=== PATIENT | female | born 1950 | race Caucasian/White ===

== ENCOUNTER → 2017-11-13 14:49 | Outpatient (CLI) | payer MEDICARE, SELFPAY ==
--- NOTE | 2017-11-13 14:52 | BI_ITS ---
MAMMOGRAPHY - BILATERAL SCREENING 3-D TOÑO SYNTHESIS REASON FOR EXAM: Female, 66 years old. Bilateral Screening 3-D tomosynthesis PERTINENT HISTORY: No significant family history. TECHNIQUE: 2-D mammograms and 3-D Toño synthesis of the breast (s) were performed. CAD was performed. COMPARISON: June 02, 2015. FINDINGS: The breast composition is composed of scattered fibroglandular density. Scattered benign calcifications are seen. No dense spiculated masses or suspicious microcalcifications are identified. No architectural distortion is identified. There is no skin thickening or retraction. There has been no significant change since the prior study. BI/SCREENING MAMM (CAD), BILAT IMPRESSION: No mammographic signs of malignancy. Routine yearly mammograms recommended. ASSESSMENT CATEGORY: BIRADS Category 2: Benign. A letter regarding these results will be sent to the patient by the facility within 30 days. FOLLOW UP RECOMMENDATION: Yearly follow up mammogram recommended. (A) Approximately 10% of breast cancers are not detected by mammography. A normal mammogram should not delay biopsy of a clinically suspicious abnormality. Electronically Signed: Orville Marin MD at 16:04 EDT , Service support ,
== END ==
PROVIDERS: Family Provider Family Medicine; PCP Family Medicine; Visit Provider Family Medicine
DX: Z12.31 Encounter for screening mammogram for malignant neoplasm of breast (principal)
CPT/HCPCS: 77063; 77067

== ENCOUNTER → 2018-03-16 06:06 | Outpatient (CLI) | payer MEDICARE, SELFPAY ==
[2018-03-16 06:11] LABS: Bacteria 0 SEEN /hpf (None Seen); Mucous, Urine 0 SEEN /hpf (<or=2+); Red Blood Cells-Urine 0 SEEN /hpf (0-5)
[2018-03-16 07:32] LABS: Color, Urine Yellow (Yellow); Glucose, Dipstick Normal (Normal); Ketone-Dipstick Negative (Negative); Leukocyte Esterase-Dipstick 25 /ul (Negative); Nitrite-Dipstick Positive (Negative); Occult Blood-Urine Negative /ul (Negative); Protein-Dipstick Negative (Negative); Urine Clarity Sl. Cloudy (Clear); Urine Urobilinogen 1 mg/dl (Normal)
[2018-03-16 07:33] LABS: Microalbumin,Random Urine 5.9 mg/L (NO RANGE EST.); Microalbumin:Creatinine Ratio 6.4 mg/g CRE (<30 mg/g CRE)
[2018-03-16 07:34] LABS: Urine Bilirubin Dipstick 1 mg/dL (Negative)
[2018-03-16 07:41] LABS: AST(SGOT) 32 U/L (15-37); Alanine Aminotransfer ALT/SGPT 37 U/L (13-56); Albumin, Serum 3.8 g/dL (3.2-5.0); Alkaline Phosphatase 79 U/L (45-117); Anion Gap 11 (5-15); BUN 25 mg/dL (7-18); BUN/Creat Ratio 22.7 RATIO (10-20); Calcium,Total 9.1 mg/dL (8.5-10.1); Chloride 107 mmol/L (98-107); Cholesterol 188 mg/dL (200); EST Glomerular Filtration Rate 52 mL/min (>60); Est Glom Filt Rate - Afr Amer 63 mL/min (>60); Globulin 3.9 g/dL (2.2-4.2); Glucose 75 mg/dL (74-106); High Density Lipoprotein 88 mg/dL; Potassium 3.9 mmol/L (3.5-5.1); Protein, Total 7.7 g/dL (6.4-8.2); Sodium Level 143 mmol/L (136-145); Thyroid Stim Hormone (TSH) 1.45 uIU/mL (0.358-3.74); Triglycerides 72 mg/dL; Very Low Density Lipoprotein 14 mg/dL (5-40)
[2018-03-16 07:52] LABS: Squamous Epithelial Cells - UA 0-5 SEEN /hpf (5-10); White Blood Cells 0-5 SEEN /hpf (0-5)
== END ==
PROVIDERS: Family Provider Family Medicine; PCP Family Medicine; Visit Provider Family Medicine
DX: E78.00 Pure hypercholesterolemia, unspecified (principal); R30.0 Dysuria; E03.9 Hypothyroidism, unspecified
CPT/HCPCS: 36415; 80053; 80061; 81001; 82043; 82570; 84443; 87086; 87088

== ENCOUNTER → 2018-04-19 15:14 | Outpatient (CLI) | payer MEDICARE, SELFPAY ==
--- NOTE | 2018-04-19 15:18 | US_ITS ---
STUDY: SUPERFICIAL ULTRASOUND - RIGHT ROSARIO. REASON FOR EXAM: Female, 67 years old. Palpable lump in right rosario. TECHNIQUE: A superficial ultrasound was performed with real-time and static gardner-scale imaging. COMPARISON: None. FINDINGS: 1.0 x 0.6 x 0.3 cm isoechoic focus with hypoechoic border in the palpable lump in the superficial subcutaneous space of the right lateral rosario. Etiology is unknown. US/Ext Non Vasc Limited/Soft Tiss IMPRESSION: 1.0 x 0.6 x 0.3 cm isoechoic focus with hypoechoic rim in the palpable lump area of the right lateral rosario. Etiology is unknown. MRI will be more helpful if desired. Electronically Signed: Brandon Chand MD at 10:24 EDT , Service support ,
== END ==
PROVIDERS: Family Provider Family Medicine; PCP Family Medicine; Referring Provider Family Medicine; Visit Provider Family Medicine
DX: R22.9 Localized swelling, mass and lump, unspecified (principal)
CPT/HCPCS: 76882

== ENCOUNTER → 2018-09-14 06:22 | Outpatient (CLI) | payer MEDICARE, SELFPAY ==
[2018-09-14 07:57] LABS: Albumin, Serum 3.9 g/dL (3.2-5.0); BUN 25 mg/dL (7-18); BUN/Creat Ratio 23.4 RATIO (10-20); Calcium,Total 9.4 mg/dL (8.5-10.1); Chloride 108 mmol/L (98-107); Creatinine, Serum 1.07 mg/dL (0.55-1.02); EST Glomerular Filtration Rate 54 mL/min (>60); Est Glom Filt Rate - Afr Amer 65 mL/min (>60); Glucose 93 mg/dL (74-106); Phosphorus 3.8 mg/dL (2.5-4.9); Potassium 4.2 mmol/L (3.5-5.1); Sodium Level 143 mmol/L (136-145)
== END ==
PROVIDERS: Family Provider Family Medicine; PCP Family Medicine; Referring Provider Family Medicine; Visit Provider Family Medicine
DX: N18.2 Chronic kidney disease, stage 2 (mild) (principal)
CPT/HCPCS: 36415; 80069

== ENCOUNTER → 2018-09-19 16:17 | Outpatient (CLI) | payer MEDICARE, SELFPAY ==
[2018-09-19 16:22] LABS: Bacteria 0 SEEN /hpf (None Seen); Mucous, Urine 0 SEEN /hpf (<or=2+); Red Blood Cells-Urine 0 SEEN /hpf (0-5); Squamous Epithelial Cells - UA 0 SEEN /hpf (5-10); White Blood Cells 0 SEEN /hpf (0-5)
[2018-09-19 18:23] LABS: Color, Urine Yellow (Yellow); Glucose, Dipstick Normal (Normal); Ketone-Dipstick 15 mg/dl (Negative); Leukocyte Esterase-Dipstick Negative /ul (Negative); Nitrite-Dipstick Negative (Negative); Occult Blood-Urine Negative /ul (Negative); Protein-Dipstick Negative (Negative); Urine Bilirubin Dipstick Negative (Negative); Urine Clarity Clear (Clear); Urine Urobilinogen Normal (Normal)
[2018-09-19 18:44] LABS: Microalbumin,Random Urine 7.1 mg/L (NO RANGE EST.); Microalbumin:Creatinine Ratio 8.5 mg/g CRE (<30 mg/g CRE)
[2018-09-19 18:55] LABS: ALB/GLOB Ratio 1.1 RATIO (0.9-2.4); AST(SGOT) 29 U/L (15-37); Alanine Aminotransfer ALT/SGPT 38 U/L (13-56); Albumin, Serum 4.1 g/dL (3.2-5.0); Alkaline Phosphatase 90 U/L (45-117); Anion Gap 12 (5-15); BUN 23 mg/dL (7-18); CRP < 2.90 mg/L (0.0-3.0); Calcium,Total 9.6 mg/dL (8.5-10.1); Chloride 105 mmol/L (98-107); EST Glomerular Filtration Rate 58 mL/min (>60); Est Glom Filt Rate - Afr Amer 71 mL/min (>60); Globulin 3.9 g/dL (2.2-4.2); Glucose 86 mg/dL (74-106); Potassium 3.6 mmol/L (3.5-5.1); Sodium Level 141 mmol/L (136-145); T4 Free Direct 1.51 ng/dL (0.76-1.46); Thyroid Stim Hormone (TSH) 0.53 uIU/mL (0.358-3.74)
== END ==
PROVIDERS: Family Provider Family Medicine; PCP Family Medicine; Referring Provider Family Medicine; Visit Provider Family Medicine
DX: I12.9 Hypertensive chronic kidney disease with stage 1 through stage 4 chronic kidney disease, or unspecified chronic kidney disease (principal); N18.2 Chronic kidney disease, stage 2 (mild); E03.9 Hypothyroidism, unspecified; R00.0 Tachycardia, unspecified
CPT/HCPCS: 36415; 80053; 81001; 82043; 82570; 84439; 84443; 86140; 87086; 87088

== ENCOUNTER → 2018-10-22 11:55 | Outpatient (CLI) | payer MEDICARE, SELFPAY ==
[2018-10-22 14:16] LABS: Free T3 2.5 pg/mL (2.18-3.98); T4 Free Direct 0.98 ng/dL (0.76-1.46); Thyroid Stim Hormone (TSH) 1.58 uIU/mL (0.358-3.74)
== END ==
PROVIDERS: Family Provider Family Medicine; PCP Family Medicine; Visit Provider Family Medicine
DX: E03.9 Hypothyroidism, unspecified (principal)
CPT/HCPCS: 36415; 84439; 84443; 84481

== ENCOUNTER → 2019-01-17 | Outpatient (CLI) | payer MEDICARE, SELFPAY ==
[2019-01-17 08:49] VITALS: BMI 20.1
[2019-01-17 15:53] LABS: Bacteria 0 SEEN /hpf (None Seen); Mucous, Urine 0 SEEN /hpf (<or=2+); Red Blood Cells-Urine 0 SEEN /hpf (0-5); White Blood Cells 0 SEEN /hpf (0-5)
[2019-01-17 17:09] LABS: Color, Urine Yellow (Yellow)
[2019-01-17 17:10] LABS: Glucose, Dipstick Normal (Normal); Ketone-Dipstick Negative (Negative); Leukocyte Esterase-Dipstick Negative /ul (Negative); Occult Blood-Urine Negative /ul (Negative); Protein-Dipstick Negative (Negative); Urine Bilirubin Dipstick Negative (Negative); Urine Clarity Sl Cldy (Clear); Urine Urobilinogen 1 mg/dl (Normal)
[2019-01-17 17:12] LABS: Nitrite-Dipstick Negative (Negative); Squamous Epithelial Cells - UA 0-5 SEEN /hpf (5-10)
[2019-01-17 17:13] LABS: Amorphous Sediment 1+ URATE
== END | disposition home or self-care (01) ==
LOC: LABSPEC 14:49
PROVIDERS: Family Provider Family Medicine; PCP Family Medicine; Referring Provider Physician Assistant; Visit Provider Physician Assistant
DX: R30.0 Dysuria (principal)
CPT/HCPCS: 81001; 87086

== ENCOUNTER → 2019-09-27 09:02 | Outpatient (CLI) | payer MEDICARE, SELFPAY ==
[2019-01-17 08:49] VITALS: BMI 20.1
[2019-09-27 11:42] LABS: ALB/GLOB Ratio 0.9 RATIO (0.9-2.4); AST(SGOT) 28 U/L (15-37); Alanine Aminotransfer ALT/SGPT 48 U/L (13-56); Albumin, Serum 3.8 g/dL (3.2-5.0); Alkaline Phosphatase 91 U/L (45-117); Anion Gap 6 (5-15); BUN 20 mg/dL (7-18); BUN/Creat Ratio 22.1 RATIO (10-20); Calcium,Total 9.8 mg/dL (8.5-10.1); Chloride 106 mmol/L (98-107); Cholesterol 239 mg/dL (200); Creatinine, Serum 0.91 mg/dL (0.55-1.02); EST Glomerular Filtration Rate 65 mL/min (>60); Est Glom Filt Rate - Afr Amer 79 mL/min (>60); Globulin 4.3 g/dL (2.2-4.2); Glucose 93 mg/dL (74-106); High Density Lipoprotein 87 mg/dL; Potassium 3.9 mmol/L (3.5-5.1); Protein, Total 8.1 g/dL (6.4-8.2); Sodium Level 138 mmol/L (136-145); T4 Free Direct 1.04 ng/dL (0.76-1.46); Thyroid Stim Hormone (TSH) 2.97 uIU/mL (0.358-3.74); Triglycerides 81 mg/dL; Very Low Density Lipoprotein 16 mg/dL (5-40)
== END ==
PROVIDERS: Nurse Practitioner Family; PCP Family Medicine; Referring Provider Family Medicine; Visit Provider Family Medicine
DX: E78.00 Pure hypercholesterolemia, unspecified (principal); E55.9 Vitamin D deficiency, unspecified; E03.9 Hypothyroidism, unspecified
CPT/HCPCS: 36415; 80053; 80061; 82306; 84439; 84443

== ENCOUNTER → 2020-02-07 06:09 | Outpatient (CLI) | payer MEDICARE, SELFPAY ==
[2019-01-17 08:49] VITALS: BMI 20.1
[2020-02-07 08:06] LABS: Anion Gap 5 (5-15); BUN 23 mg/dL (7-18); BUN/Creat Ratio 21.7 RATIO (10-20); Calcium,Total 8.9 mg/dL (8.5-10.1); Chloride 109 mmol/L (98-107); Creatinine, Serum 1.06 mg/dL (0.55-1.02); EST Glomerular Filtration Rate 54 mL/min (>60); Est Glom Filt Rate - Afr Amer 66 mL/min (>60); Glucose 83 mg/dL (74-106); Potassium 3.9 mmol/L (3.5-5.1); Sodium Level 139 mmol/L (136-145); T4 Free Direct 1.09 ng/dL (0.76-1.46); Thyroid Stim Hormone (TSH) 2.71 uIU/mL (0.358-3.74)
== END ==
PROVIDERS: PCP Family Medicine; Referring Provider Family Medicine; Visit Provider Family Medicine
DX: I10 Essential (primary) hypertension (principal); E03.9 Hypothyroidism, unspecified
CPT/HCPCS: 36415; 80048; 84439; 84443

== ENCOUNTER → 2020-08-06 13:27 | Outpatient (CLI) | payer MEDICARE, SELFPAY ==
[2019-01-17 08:49] VITALS: BMI 20.1
--- NOTE | 2020-08-06 13:32 | BI_ITS ---
MAMMOGRAPHY - BILATERAL SCREENING REASON FOR EXAM: Female, 69 years old. Routine annual screening examination. PERTINENT HISTORY: Non-contributory. Remote left breast biopsy. TECHNIQUE: Digital bilateral breast toño (3D mammographic acquisition) in the CC and MLO projections. 2-D mediolateral oblique (MLO) and craniocaudad (CC) views of both breasts were obtained. CAD: Full Field Digital Mammography with Computer Added Detection was performed. COMPARISON: Comparison is made with prior study dated 11/13/2017 and 06/02/2015. FINDINGS: Breast Composition: There are scattered areas of fibroglandular density. There are no dominant masses or suspicious calcifications. No other significant abnormalities are identified. There has been no significant change since the prior study. BI/SCRN MAMM (CAD)W/TOÑO BILAT IMPRESSION: Stable bilateral screening mammogram. Yearly follow-up mammogram recommended. (A) ASSESSMENT CATEGORY: BIRADS Category 1: Negative. A letter regarding these results will be sent to the patient by the facility within 30 days. Approximately 10% of breast cancers are not detected by mammography. A normal mammogram should not delay biopsy of a clinically suspicious abnormality. [id number] Electronically Signed: Sloan Britton, at 14:32 EST , Service support ,
--- NOTE | 2020-08-06 13:34 | BD_ITS ---
STUDY: DUAL ENERGY X-RAY ABSORPTIOMETRY / DXA REASON FOR EXAM: Female, 69 years old. 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 COMPARISON: Comparison is made with prior study dated 01/07/2014. FINDINGS: Lumbar Spine (L1-L4): g/cm2 (1.070) / T-score (-0.9) / Z-score (0.8) Findings are suggestive of normal bone density with a low fracture risk. Left Femur Total: g/cm2 (0.908) / T-score (-0.8) / Z-score (0.8) Left Femoral Neck: g/cm2 (0.833) / T-score (-1.5) / Z-score (0.3) Right Femur Total: g/cm2 (0.881) / T-score (-1.0) / Z-score (0.5) Right Femoral Neck: g/cm2 (0.820) / T-score (-1.6) / Z-score (0.2) The T-Scores on the most recent prior examination were: Lumbar Spine (L1-L4): There has been worsening of bone density since the previous examination. Left Femur Total: which represents a worsening of 3.9%. Right Femur Total: which represents a worsening of 8.2%. BD/Dexa Bone Density Study IMPRESSION: The patient is considered osteopenic as outlined below according to World [employer] Organization (WHO) criteria with a moderate fracture risk. There has been worsening of bone density since the previous examination. Reference Information: The T-score is the number of standard deviations above or below the standard which is normal for young adults at their peak bone mineral density. The World Health Organization (WHO) interprets the T-scores as follows: Above -1 Normal bone density Between -1 and -2.5 Osteopenia Equal to / or below -2.5 Osteoporosis As a practical clinical guideline, osteopenia may be graded as follows: Mild -1 through -1.5 Moderate -1.6 through -2.0 Severe -2.1 through -2.4 The Z-score is the number of standard deviations above or below age-matched controls. A Z-score of less than -1.5 would be considered abnormal. References: 1. NIH Osteoporosis and Related Bone Diseases www osteo.org 2. International Society for Clinical Densitometry www iscd.org 3. National Osteoporosis Foundation www nof.org Electronically Signed: Sloan Britton, at 15:21 EST , Service support ,
== END ==
PROVIDERS: PCP Family Medicine; Referring Provider Family Medicine; Visit Provider Family Medicine
DX: Z12.31 Encounter for screening mammogram for malignant neoplasm of breast (principal); E28.319 Asymptomatic premature menopause
CPT/HCPCS: 77063; 77067; 77080

== ENCOUNTER → 2020-12-28 06:07 | Outpatient (CLI) | payer MEDICARE, SELFPAY ==
[2019-01-17 08:49] VITALS: BMI 20.1
[2020-12-28 07:22] LABS: Absolute Lymphocyte Count 2.07 X10^3/uL (0.83-4.51); Absolute Neutrophil Count 3.1 X10^3/uL (2.0-7.7); Basophil# 0.06 X10^3/uL; Eosinophil# 0.17 X10^3/uL; Eosinophils% 2.8 % (0-5); Hematocrit 44.2 % (37-47); Hemoglobin 14.7 g/dL (12.0-15.0); Lymphocyte # 2.07 X10^3/ul (0.83-4.51); Lymphocyte % 33.6 % (19-41); Mean Corp Hgb Conc 33.3 g/dL (32-36); Mean Corpuscular Hgb 30.4 pg (27.0-32.0); Mean Corpuscular Volume 91.3 fL (81-99); Mean Platelet Vol. 9.2 fl (6.2-12.0); Monocyte# 0.79 X10^3/uL; Monocyte% 12.8 % (0-10); NRBC Flagged by Analyzer 0 % (0-5); Neutrophil # 3.06 X10^3/uL (2.7-7.7); Neutrophil % 49.6 % (47-70); Platelet Count 208 K/mm3 (150-450); RBC Distribution Width CV 11.8 % (11.6-14.6); RBC Distribution Width SD 39.5 fl (35.1-43.9); Red Blood Count 4.84 M/mm3 (4.2-5.4); White Blood Count 6.2 K/mm3 (4.4-11.0)
[2020-12-28 07:40] LABS: Microalbumin,Random Urine 5.1 mg/L (NO RANGE EST.); Microalbumin:Creatinine Ratio 3.3 mg/g CRE (<30 mg/g CRE)
[2020-12-28 07:54] LABS: ALB/GLOB Ratio 0.8 RATIO (0.9-2.4); AST(SGOT) 24 U/L (15-37); Alanine Aminotransfer ALT/SGPT 28 U/L (13-56); Albumin, Serum 3.4 g/dL (3.2-5.0); Alkaline Phosphatase 92 U/L (45-117); Anion Gap 9 (5-15); BUN 22 mg/dL (7-18); BUN/Creat Ratio 21.8 RATIO (10-20); Calcium,Total 9.3 mg/dL (8.5-10.1); Chloride 105 mmol/L (98-107); Creatinine, Serum 1.01 mg/dL (0.55-1.02); EST Glomerular Filtration Rate 57 mL/min (>60); Est Glom Filt Rate - Afr Amer 69 mL/min (>60); Glucose 88 mg/dL (74-106); Protein, Total 7.4 g/dL (6.4-8.2); Sodium Level 141 mmol/L (136-145); Thyroid Stim Hormone (TSH) 3.01 uIU/mL (0.358-3.74)
[2020-12-28 07:58] LABS: Vitamin D,25 Hydroxy 48.2 ng/mL
== END ==
PROVIDERS: PCP Family Medicine; Referring Provider Family Medicine; Visit Provider Family Medicine
DX: N18.2 Chronic kidney disease, stage 2 (mild) (principal); E03.9 Hypothyroidism, unspecified; E55.9 Vitamin D deficiency, unspecified
CPT/HCPCS: 36415; 80053; 82043; 82306; 82570; 84443; 85025

== ENCOUNTER 2022-05-04 07:04 | Emergency (ER) | payer MEDICARE, SELFPAY ==
[2022-05-04 07:05] VITALS: BP 164/86; PULSE 96; RESP 19; TEMP 36.3; O2SAT 98; BMI 22.7
[2022-05-04 07:07] VITALS: BP 164/86; PULSE 96; RESP 19; TEMP 36.3; O2SAT 98
--- NOTE | 2022-05-04 07:21 | EDS_ITS ---
HPI HPI - GI History of Present Illness Chief Complaint: Abd Pain Informant: patient Abdominal Pain/Flank Pain Onset: Days (3) Context: Gradual Onset Timing: Intermittent Quality: Cramping Location: Epigastric and LLQ Worsened by: Nothing Relieved by: Nothing Nausea/Vomiting/Emesis GI Symptom: Positive for Nausea; Negative for Vomiting Diarrhea/Melena/Hematochezia GI Symptom: Positive for Diarrhea; Negative for Melena or Hematochezia Stool Quality: Positive for Loose Episodes: 1 Associated Symptoms Associated Symptoms: Negative for Dysuria, Frequency or Hematuria Narrative Narrative: Patient presents with a aminal pain that has been intermittent over the last 3 days. Patient states she has pain over the epigastric and left lower quadrant. Patient describes it as cramping. Patient states it feels similar to prior episodes of diverticulitis. Patient states she has Cipro and Flagyl at home and usually starts this whenever she feels her diverticulitis started to flareup. Patient states she started this yesterday but it has not improved. Patient admits to nausea but denies any vomiting. Patient states she had 1 episode of diarrhea today. Patient denies any melena or hematochezia. Patient denies any urinary complaints. [facility] Medical History (Updated 05/04/22 @ 10:[address] Cr Franz, DO) Arthritis Diverticulitis Hay fever Hemorrhoids Hypertension Home Medications antiarthritic combination no.2 900 mg tablet (glucosamine-chondroitin) mg PO 01/17/19 [History Last Taken Unknown] atorvastatin 10 mg tablet PO #90 tabs 01/17/19 [History Last Taken Unknown] calcium carbonate 600 mg calcium (1,500 mg) tablet 600 mg PO DAILY 01/17/19 [History Last Taken Unknown] cetirizine 10 mg capsule (Zyrtec) PO 01/17/19 [History Last Taken Unknown] dicyclomine 10 mg capsule PO #180 caps 01/17/19 [History Last Taken Unknown] famotidine 40 mg tablet PO #90 tabs 01/17/19 [History Last Taken Unknown] fluconazole 200 mg tablet 200 mg PO DAILY #1 TAB 01/17/19 [Rx Last Taken Unknown] levothyroxine 75 mcg tablet PO #90 tabs 01/17/19 [History Last Taken Unknown] lisinopril 10 mg tablet PO #90 tabs 01/17/19 [History Last Taken Unknown] multivitamin,[id number] (Complete Multivitamin tablet) 1 tab PO DAILY 01/17/19 [History Last Taken Unknown] nifedipine 30 mg tablet,extended release PO #90 tabs 01/17/19 [History Last Taken Unknown] omega-3 fatty acids 1,000 mg capsule 1,000 mg PO DAILY 01/17/19 [History Last Taken Unknown] ciprofloxacin HCl 500 mg tablet 500 mg PO BID #20 TABLETS 05/04/22 [Rx Last Taken Unknown] metronidazole 500 mg tablet 500 mg PO Q6H #40 tabs 05/04/22 [Rx Last Taken Unknown] Allergy/AdvReac Type Severity Reaction Status Date / Time Penicillins Allergy Mild HIVES Verified 01/17/19 08:51 Surgical History History of knee surgery History of tonsillectomy Social History Smoking Status: Never smoker alcohol intake: current ROS ROS ED Constitutional Constitutional ED: Denies chills or fever(s) Eyes Eyes: Denies blurry vision or change in vision ENT ENT ED: Denies rhinorrhea or sore throat Cardiovascular Cardiovascular: Denies chest pain or palpitations Respiratory/Chest Respiratory/Chest: Denies cough or dyspnea Gastrointestinal Gastrointestinal: Reports abdominal pain and nausea; Denies vomiting Genitourinary Genitourinary ED: Denies dysuria or hematuria Musculoskeletal Musculoskeletal: Reports back pain; Denies neck pain Integumentary Denies abscess or rash Neurologic Neurologic: Denies headache(s) or weakness Allergic/Immunologic Allergic/Immunologic ED: Denies mouth swelling or urticaria EXAM Physical Exam Const Vital Signs: 05/04/22 07:05 05/04/22 07:07 05/04/22 10:00 Temperature 97.3 F L 97.3 F L 97.6 F L Temperature Source Oral Oral Oral Pulse Rate 96 96 83 Respiratory Rate 19 H 19 H 16 Blood Pressure 164/86 H 164/86 H 165/87 H Blood Pressure Mean 112 112 113 Pulse Ox 98 98 99 Oxygen Delivery Method Room Air Room Air Room Air 05/04/22 09:00 Temperature Temperature Source Pulse Rate 83 Respiratory Rate 16 Blood Pressure 162/81 H Blood Pressure Mean 108 Pulse Ox 98 Oxygen Delivery Method Room Air Positive well nourished and well developed General Appearance ED: well developed HEENT Reports moist mucous membranes Neck supple and no JVD Resp normal respiratory effort and clear to auscultation bilaterally Cardio regular rate, regular rhythm and no murmurs GI normal to inspection, nondistended, normoactive bowel sounds Palpation: soft and tender epigastric and LLQ; Negative for guarding or rebound tenderness present Extremity normal to inspection General Extremety ED: Negative for edema or tenderness General Extremity: Negative for edema Neuro oriented x3, CN's II-XII intact bilaterally and no sensory deficits noted Sensorium / Orientation: alert Motor Exam: strength 5/5 throughout Psych mental status grossly normal Skin no rashes or lesions noted MDM MDM MDM Narrative Medical decision making narrative: Patient was given IV fluids. CBC shows a mild leukocytosis of 14.4. Comprehensive metabolic profile was essentially within normal limits. Lipase was normal. Urinalysis does not show any evidence of urinary tract infection. CT scan of the abdomen pelvis was obtained. There is evidence of diverticulitis. There is no perforation or abscess. There is no other acute abnormality noted. This was interpreted by the radiologist and reviewed by myself. Patient was advised of her findings. Patient states she is almost out of her antibiotics. Patient was given prescriptions for Cipro and Flagyl. Patient was instructed to follow-up with her primary care physician in 5 to 7 days. Patient understood and was agreeable with the plan. All questions were answered. Lab Data Attestation: I reviewed the patient's lab results. Labs: Laboratory Results - last 24 hr 05/04/22 05/04/22 05/04/22 07:06 07:06 07:40 WBC 14.4 H RBC 5.04 Hgb 15.3 H Hct 46.0 MCV 91.3 MCH 30.4 MCHC 33.3 RDW Std Deviation 39.2 RDW Coeff of Nabeel 11.8 Plt Count 200 MPV 9.0 Immature Gran % (Auto) 0.400 Neut % (Auto) 75.3 H Lymph % (Auto) 13.0 L Waller % (Auto) 10.9 H Eos % (Auto) 0.1 Baso % (Auto) 0.3 Absolute Neuts (auto) 10.8 H Absolute Lymphs (auto) 1.87 Nucleated RBC % 0 Differential Comment SCANNED Diff Path Review May foll Sodium 135 L Potassium 4.2 Chloride 104 Carbon Dioxide 25.0 Anion Gap 6 BUN 16 Creatinine 0.99 Estim Creat Clear Calc 36.35 Est GFR (MDRD) Af Amer 70 Est GFR (MDRD) Non-Af 58 L BUN/Creatinine Ratio 16.1 Glucose 130 H Calcium 9.2 Total Bilirubin 0.90 AST 24 ALT 32 Alkaline Phosphatase 81 Total Protein 7.5 Albumin 3.4 Globulin 4.1 Albumin/Globulin Ratio 0.8 L Lipase 204 Urine Color Yellow Urine Clarity Sl. Cloudy Urine pH 6.0 Ur Specific [place] 1.010 Urine Protein Negative Urine Glucose (UA) Normal Urine Ketones 5 H Urine Occult Blood 10 H Urine Nitrite Negative Urine Bilirubin Negative Urine Urobilinogen Normal Ur Leukocyte Esterase 25 H Urine RBC 0-5 SEEN Urine WBC 0-5 SEEN Ur Squamous Epith Cells 0 SEEN Urine Bacteria 0 SEEN Urine Mucus 0 SEEN Radiography Diagnostic Testing: Clinical Impression(s) from Imaging Studies Abdomen/Pelvis CT 05/04/22 07:25 IMPRESSION: Findings in keeping with the noncomplicated acute sigmoid diverticulitis. Stable multiple hepatic cysts. Electronically Signed: Sloan Britton MD at 9:39 EDT , Discharge Plan Triage Chief Complaint: Abd Pain ED Provider: Cr Franz Dx/Rx/DC Orders Clinical Impression: Diverticulitis, Hypertension Instructions: ED Diverticulitis Prescriptions: New metronidazole [metronidazole] 500 mg tablet 500 mg PO Q6H Qty: 40 0RF ciprofloxacin HCl [ciprofloxacin HCl] 500 mg tablet 500 mg PO BID Qty: 20 0RF No Action lisinopril 10 mg tablet PO Qty: 90 levothyroxine 75 mcg tablet PO Qty: 90 atorvastatin 10 mg tablet PO Qty: 90 nifedipine 30 mg tablet extended release PO Qty: 90 famotidine 40 mg tablet PO Qty: 90 dicyclomine 10 mg capsule PO Qty: 180 calcium carbonate 600 mg calcium (1,500 mg) tablet 600 mg PO DAILY glucosamine-chondroitin 900 mg tablet PO Complete Multivitamin tablet 1 tab PO DAILY omega-3 fatty acids 1,000 mg capsule 1,000 mg PO DAILY Zyrtec 10 mg capsule PO fluconazole 200 mg tablet 200 mg PO DAILY Qty: 1 0RF Primary Care Provider: Cr Casillas Referrals: Cr Casillas MD [Primary Care Provider] - 5-7 Days Disposition Disposition: Home, Self Care
--- NOTE | 2022-05-04 07:25 | CT_ITS ---
STUDY: CT ABDOMEN AND PELVIS WITH CONTRAST REASON FOR EXAM: Female, 71 years old. Abdominal pain -- IV PO Contrast. History of diverticulitis. RADIATION DOSAGE (If Supplied By Facility): CTDIvol = ( 14.64 ) mGy, DLP = ( 275.00 ) mGycm TECHNIQUE: Transaxial images were obtained from the dome of the diaphragm to the symphysis pubis with oral contrast. Oral and amp;amp; IV Gastrografin and amp;amp; 100mL Isovue-370 was administered. Sagittal and coronal images were reconstructed. Individualized dose optimization techniques were used for this CT. COMPARISON: Comparison is made with prior study dated 12/20/2016. FINDINGS: The visualized lung bases are unremarkable. Coronary artery calcification. 51.1 cm cyst in the superior lateral aspect of the right lobe of liver. Diffuse fatty infiltration. Stable septated cyst in the lateral inferior aspect of the right lobe of the liver measuring 3.2 cm x 1.7 cm. Scattered subcentimeters cysts are also seen. These are unchanged. Normal gallbladder and extrahepatic biliary system. Normal spleen. Normal pancreas. Normal bilateral adrenal glands. Normal right kidney. Normal left kidney. There is a moderate-sized hiatal hernia. Normal small intestine. There is diverticulosis, with thickening of the colon wall, and pericolonic inflammation changes consistent with acute diverticulitis. The appendix is visualized and appears normal. Normal abdominal aorta. Normal inferior vena cava. Normal retroperitoneum. Normal urinary bladder. There is evidence of bilateral tubal ligation. Normal abdominal wall. Stable grade 2 anterolisthesis of L5 on S1 with spondylolysis of the pars interarticularis of the L5 vertebrae. CT/Abdomen/Pelvis WITH Contrast IMPRESSION: Findings in keeping with the noncomplicated acute sigmoid diverticulitis. Stable multiple hepatic cysts. Electronically Signed: Sloan Britton MD at 9:39 EDT ,
[2022-05-04 07:37] LABS: Absolute Lymphocyte Count 1.87 X10^3/uL (0.83-4.51); Absolute Neutrophil Count 10.8 X10^3/uL (2.0-7.7); Basophil# 0.05 X10^3/uL; Basophil% 0.3 % (0-1); Eosinophil# 0.02 X10^3/uL; Eosinophils% 0.1 % (0-5); Hemoglobin 15.3 g/dL (12.0-15.0); Lymphocyte # 1.87 X10^3/ul (0.83-4.51); Mean Corp Hgb Conc 33.3 g/dL (32-36); Mean Corpuscular Hgb 30.4 pg (27.0-32.0); Mean Corpuscular Volume 91.3 fL (81-99); Monocyte# 1.57 X10^3/uL; Monocyte% 10.9 % (0-10); NRBC Flagged by Analyzer 0 % (0-5); Neutrophil % 75.3 % (47-70); POSITIVE DIFFERENTIAL YES; Platelet Count 200 K/mm3 (150-450); RBC Distribution Width CV 11.8 % (11.6-14.6); RBC Distribution Width SD 39.2 fl (35.1-43.9); Red Blood Count 5.04 M/mm3 (4.2-5.4); White Blood Count 14.4 K/mm3 (4.4-11.0)
[2022-05-04] MEDS: 0.9% Normal Saline 1,000 ML 1000 ML IV (07:37)
[2022-05-04 07:44] LABS: Differential Indicated SCAN CRITERIA MET
[2022-05-04 07:45] LABS: Bacteria 0 SEEN /hpf (None Seen); Mucous, Urine 0 SEEN /hpf (<or=2+); Squamous Epithelial Cells - UA 0 SEEN /hpf (5-10)
[2022-05-04 07:53] LABS: ALB/GLOB Ratio 0.8 RATIO (0.9-2.4); AST(SGOT) 24 U/L (15-37); Alanine Aminotransfer ALT/SGPT 32 U/L (13-56); Albumin, Serum 3.4 g/dL (3.2-5.0); Alkaline Phosphatase 81 U/L (45-117); BUN 16 mg/dL (7-18); BUN/Creat Ratio 16.1 RATIO (10-20); Calcium,Total 9.2 mg/dL (8.5-10.1); Chloride 104 mmol/L (98-107); Creatinine, Serum 0.99 mg/dL (0.55-1.02); EST Glomerular Filtration Rate 58 mL/min (>60); Est Glom Filt Rate - Afr Amer 70 mL/min (>60); Estimated Creatinine Clearance 36.35 ml/min; Globulin 4.1 g/dL (2.2-4.2); Glucose 130 mg/dL (74-106); Lipase 204 U/L (73-393); Potassium 4.2 mmol/L (3.5-5.1); Protein, Total 7.5 g/dL (6.4-8.2); Sodium Level 135 mmol/L (136-145)
[2022-05-04 07:54] LABS: Anion Gap 6 (5-15)
[2022-05-04 07:55] LABS: Color, Urine Yellow (Yellow); Glucose, Dipstick Normal (Normal); Ketone-Dipstick 5 mg/dl (Negative); Leukocyte Esterase-Dipstick 25 /ul (Negative); Nitrite-Dipstick Negative (Negative); Occult Blood-Urine 10 /ul (Negative); Protein-Dipstick Negative (Negative); Urine Bilirubin Dipstick Negative (Negative); Urine Clarity Sl. Cloudy (Clear); Urine Urobilinogen Normal (Normal)
[2022-05-04 08:04] LABS: Red Blood Cells-Urine 0-5 SEEN /hpf (0-5); White Blood Cells 0-5 SEEN /hpf (0-5)
[2022-05-04 08:30] LABS: Differential Comment SCANNED
[2022-05-04 09:00] VITALS: BP 162/81; PULSE 83; RESP 16; O2SAT 98
[2022-05-04 10:00] VITALS: BP 165/87; PULSE 83; RESP 16; TEMP 36.4; O2SAT 99
[2022-05-05 13:29] LABS: Pathologist Review Reviewed
== END 2022-05-04 10:17 | disposition home or self-care (01) ==
PROVIDERS: Emergency Provider Emergency Medicine; PCP Family Medicine; Visit Provider Emergency Medicine
DX: K57.92 Diverticulitis of intestine, part unspecified, without perforation or abscess without bleeding (principal); R11.0 Nausea; I10 Essential (primary) hypertension
CPT/HCPCS: 74177; 80053; 81001; 83690; 85025; 96360; 96361; 99283; J7030; Q9967; A4216

== ENCOUNTER 2022-07-26 06:07 | Outpatient (CLI) | payer MEDICARE, SELFPAY ==
[2022-07-26 08:01] LABS: ALB/GLOB Ratio 0.9 RATIO (0.9-2.4); AST(SGOT) 29 U/L (15-37); Alanine Aminotransfer ALT/SGPT 40 U/L (13-56); Albumin, Serum 3.5 g/dL (3.2-5.0); Alkaline Phosphatase 74 U/L (45-117); Anion Gap 10 (5-15); BUN 22 mg/dL (7-18); BUN/Creat Ratio 22.8 RATIO (10-20); Calcium,Total 9.4 mg/dL (8.5-10.1); Chloride 106 mmol/L (98-107); Creatinine, Serum 0.96 mg/dL (0.55-1.02); EST Glomerular Filtration Rate 60 mL/min (>60); Est Glom Filt Rate - Afr Amer 73 mL/min (>60); Globulin 3.7 g/dL (2.2-4.2); Glucose 83 mg/dL (74-106); Potassium 4.2 mmol/L (3.5-5.1); Protein, Total 7.2 g/dL (6.4-8.2); Sodium Level 142 mmol/L (136-145); T4 Free Direct 1.07 ng/dL (0.76-1.46); Thyroid Stim Hormone (TSH) 2.91 uIU/mL (0.358-3.74)
[2022-07-26 08:45] LABS: Vitamin D,25 Hydroxy 56.9 ng/mL
== END 2022-07-26 23:59 | disposition home or self-care (01) ==
LOC: LAB 06:09
PROVIDERS: PCP Family Medicine; Referring Provider Family Medicine; Visit Provider Family Medicine
DX: I12.9 Hypertensive chronic kidney disease with stage 1 through stage 4 chronic kidney disease, or unspecified chronic kidney disease (principal); E03.9 Hypothyroidism, unspecified; N18.2 Chronic kidney disease, stage 2 (mild); E55.9 Vitamin D deficiency, unspecified
CPT/HCPCS: 36415; 80053; 82306; 84439; 84443

== ENCOUNTER → 2022-08-01 | Outpatient (CLI) | payer MEDICARE, SELFPAY ==
[2022-08-03 16:11] LABS: ANTINUCLEAR ANTIBODIES DIRECT Negative (Negative)
== END | disposition home or self-care (01) ==
LOC: MFPLAB 16:49
PROVIDERS: PCP Family Medicine; Visit Provider Family Medicine
DX: I10 Essential (primary) hypertension (principal)
CPT/HCPCS: 36415; 86038

== ENCOUNTER → 2022-08-03 | Outpatient (CLI) | payer MEDICARE, SELFPAY ==
[2022-08-03 11:46] LABS: Creat.Clear Total Volume 1325 mL; Creatinine Clearance 73 ml/min (100-200); Creatinine Urine 75.9 mg/dL (NO RANGE EST.); EST Glomerular Filtration Rate 60 mL/min (>60); Est Glom Filt Rate - Afr Amer 73 mL/min (>60)
[2022-08-09 00:06] LABS: Metanephrine, Ur 65 ug/L (Undefined); Metanephrines, 24Ur 86 ug/24 hr (36-209); Normetanephrines, 24Ur 351 ug/24 hr (131-612); Normetanephrines, Ur 265 ug/L (Undefined)
[2022-08-09 14:47] LABS: 5-HIAA, 24UR 5.2 mg/24 hr (0.0-14.9); 5-HIAA, UR 3.9 mg/L (Undefined)
== END | disposition home or self-care (01) ==
LOC: MFPLAB 09:13 → LABSPEC 09:14
PROVIDERS: PCP Family Medicine; Visit Provider Family Medicine
DX: I10 Essential (primary) hypertension (principal)
CPT/HCPCS: 81050; 82575; 83497; 83835

== ENCOUNTER → 2022-08-12 | Outpatient (CLI) | payer MEDICARE, SELFPAY ==
[2022-08-12 10:35] LABS: Color, Urine Yellow (Yellow); Glucose, Dipstick Normal (Normal); Ketone-Dipstick Negative (Negative); Leukocyte Esterase-Dipstick 25 /ul (Negative); Nitrite-Dipstick Negative (Negative); Occult Blood-Urine Negative /ul (Negative); Protein-Dipstick Negative (Negative); Urine Bilirubin Dipstick Negative (Negative); Urine Clarity Turbid (Clear); Urine Urobilinogen Normal (Normal)
== END | disposition home or self-care (01) ==
LOC: LABSPEC 09:27
PROVIDERS: PCP Family Medicine; Referring Provider Family Medicine; Visit Provider Family Medicine
DX: R30.0 Dysuria (principal)
CPT/HCPCS: 81002; 87086; 87088

== ENCOUNTER → 2022-08-22 | Outpatient (CLI) | payer MEDICARE, SELFPAY ==
--- NOTE | 2022-08-22 13:11 | BI_ITS ---
MAMMOGRAPHY - BILATERAL SCREENING REASON FOR EXAM: Female, 71 years old. Routine annual screening examination. PERTINENT HISTORY: Non-contributory. TECHNIQUE: Digital bilateral breast toño (3D mammographic acquisition) in the CC and MLO projections. 2-D mediolateral oblique (MLO) and craniocaudad (CC) views of both breasts were obtained. CAD: Full Field Digital Mammography with Computer Added Detection was performed. COMPARISON: Comparison is made with prior study dated 02/03/2021 and 11/13/2017. FINDINGS: Breast Composition: There are scattered areas of fibroglandular density. There are no dominant masses or suspicious calcifications. No other significant abnormalities are identified. There has been no significant change since the prior study. BI/SCRN MAMM (CAD)W/TOÑO BILAT IMPRESSION: Stable bilateral screening mammogram. Yearly follow-up mammogram recommended. (A) ASSESSMENT CATEGORY: BIRADS Category 1: Negative. A letter regarding these results will be sent to the patient by the facility within 30 days. Approximately 10% of breast cancers are not detected by mammography. A normal mammogram should not delay biopsy of a clinically suspicious abnormality. [id number] Electronically Signed: Sloan Britton MD at 13:59 EST ,
== END | disposition home or self-care (01) ==
LOC: OPBI 13:09
PROVIDERS: PCP Family Medicine; Visit Provider Family Medicine
DX: Z12.31 Encounter for screening mammogram for malignant neoplasm of breast (principal)
CPT/HCPCS: 77063; 77067

== ENCOUNTER → 2022-08-23 | Outpatient (CLI) | payer MEDICARE, SELFPAY ==
--- NOTE | 2022-08-23 08:47 | RDU_ITS ---
Reason For Study: HTN Right Renal Artery Left Renal Artery Right renal artery ostium 78.1/26.5 Left renal artery ostium 57.2/16.7 RSV/EDV. PSV/EDV. Right renal artery proximal Left renal artery proximal PSV/EDV 79.6/26.6 PSV/EDV. 74.4/25.3 . Right renal artery mid 66.2/21.1 Left renal artery mid 70.9/26.3 PSV/EDV. PSV/EDV . Right renal artery distal 65.1/23.1 Left renal artery distal 81.8/27.8 PSV/EDV. PSV/EDV. Right RAR 1.00. Left RAR 1.03. Right Renal Parenchyma Left Renal Parenchyma Upper Pole Medula 17.4/5.8 PSV/EDV. Left upper pole medulla 19.6/8 Right upper pole medulla EDR 0.3 . PSV/EDV . Right upper pole medulla R.I. Left upper pole medulla EDR 0.4 . 0.66 . Left upper pole medulla R.I. 0.59 . Upper Leonid Cortx 14.1/5.8 PSV/EDV. UP Cortex 16.3/5.8 PSV/EDV. Right upper pole cortex EDR 0.4 . Left upper pole cortex EDR 0.4 . Right upper pole cortex R.I. 0.59 . Left upper pole cortex R.I. 0.64 . Right lower Pole medulla 25.1/10.2 Left lower Pole medulla 25/10.2 PSV/EDV . PSV/EDV . Right lower pole medulla EDR 0.4 . Left lower pole medulla EDR 0.4 . Right lower pole medulla R.I. Left lower pole medulla R.I. 0.59 . 0.59 . Lower Pole Cortx 19/7.5 PSV/EDV. Lower Pole Cortex 17.4/6.4 PSV/EDV. Left lower pole cortex EDR 0.4 . Right lower pole cortex EDR 0.4 . Left lower pole cortex R.I. 0.61 . Right lower pole cortex R.I. 0.63 . Left Renal Hilar Right Renal Hilar LT Hilar avg 61.1/25.9 PSV/EDV . Right Hilar avg 76.5/28.1 PSV/EDV. Left hilar acceleration time 40 Right hilar acceleration time 30 m/sec. m/sec. Left Renal Dimensions Right Renal Dimensions Left kidney size 9.78 cm . Right kidney size 8.06 cm . Left cortical dimension 1.45 cm . Right cortical dimension 1.15 cm . Aorta Proximal abdominal aorta 2.06 x 2.05 cm . Proximal abdominal aorta peak systolic velocity is 79.4 cm/sec . Distal abdominal aorta 1.39 x 1.42 cm . Distal abdominal aorta peak systolic velocity is 73.2 cm/sec . VL/Renal Artery Duplex Ultrasound Interpretation Summary Less than 60% stenosis right renal artery. Less than 60% stenosis left renal artery Right renal size borderline small at 8.06 cm Left renal length normal at 9.78 cm Maximal aortic diameter proximally at 2.06 x 2.05 cm which is normal with haja l aortic velocity Ordering Physician: Cr Casillas Referring Physician: Cr Casillas Performed By: Radha Gallo RVT
== END | disposition home or self-care (01) ==
LOC: CVS 08:45
PROVIDERS: PCP Family Medicine; Referring Provider Family Medicine; Visit Provider Family Medicine
DX: I12.9 Hypertensive chronic kidney disease with stage 1 through stage 4 chronic kidney disease, or unspecified chronic kidney disease (principal); N18.2 Chronic kidney disease, stage 2 (mild)
CPT/HCPCS: 93975

== ENCOUNTER 2022-08-28 13:14 | Emergency (ER) | payer MEDICARE, SELFPAY ==
[2022-08-28 13:16] VITALS: BP 229/123; PULSE 95; RESP 16; TEMP 36.1; O2SAT 98; BMI 22.3
[2022-08-28 13:31] VITALS: BP 191/104; PULSE 80; RESP 12; O2SAT 99
--- NOTE | 2022-08-28 13:31 | EX.ED.DYSGE1 ---
HPI <TRACY Anguiano - Last Filed: 08/28/22 14:42> History of Present Illness Chief Complaint: Hypertension Narrative Narrative: 71-year-old female has a longstanding history of hypertension. 3 weeks ago she went to a routine physical and her BP was over 200 systolic. She had a renal ultrasound and she is not sure of the results. She already was on lisinopril 20 mg twice daily and they added isosorbide 30 mg once daily 2 weeks ago. Her BPs have been fluctuating anywhere from 150s to 200s. Today she took it and it was too high to read so she came in. She does have a gradual onset generalized headache today but no visual changes or nausea or vomiting. No focal motor or sensory changes. No chest pain or shortness of breath. [facility], [facility] <TRACY Anguiano - Last Filed: 08/28/22 14:42> [facility] Medical History (Updated 08/28/22 @ 14:39 by TRACY Anguiano) Arthritis Diverticulitis Hay fever Hemorrhoids Hypertension Home Medications atorvastatin 10 mg tablet 10 mg PO DAILY #90 tabs 01/17/19 [History Last Taken Unknown] calcium carbonate 600 mg calcium (1,500 mg) tablet 600 mg PO BID 01/17/19 [History Last Taken Unknown] cetirizine 10 mg capsule (Zyrtec) 10 mg PO DAILY 01/17/19 [History Last Taken Unknown] multivitamin,[id number] (Complete Multivitamin tablet) 1 tab PO DAILY 01/17/19 [History Last Taken Unknown] omega-3 fatty acids 1,000 mg capsule 1,000 mg PO DAILY 01/17/19 [History Last Taken Unknown] cranberry fruit concentrate 250 mg chewable tablet (Azo Cranberry) 250 mg PO BID 08/28/22 [History Last Taken Unknown] glucosamine sulfate 750 mg tablet 1,500 mg PO DAILY 08/28/22 [History Last Taken Unknown] isosorbide mononitrate 30 mg tablet,extended release 24 hr 30 mg PO DAILY 08/28/22 [History Last Taken Unknown] levothyroxine 25 mcg tablet (Synthroid) 25 mcg PO DAILY 08/28/22 [History Last Taken Unknown] lisinopril 20 mg tablet 20 mg PO BID 08/28/22 [History Last Taken Unknown] magnesium oxide 400 mg (241.3 mg magnesium) tablet 400 mg PO QHS 02/05/23 [History Last Taken Unknown] mupirocin 2 % topical ointment 1 applic topical BID #15 grams 08/28/22 [Rx Last Taken Unknown] Allergy/AdvReac Type Severity Reaction Status Date / Time Penicillins Allergy Mild HIVES Verified 08/28/22 13:16 Surgical History History of knee surgery History of tonsillectomy Social History Smoking Status: Never smoker alcohol intake: current ROS <TRACY Anguiano - Last Filed: 08/28/22 14:42> ROS ED ROS Narrative Constitutional: Negative for fever, chills, malaise. Eyes: Negative for visual change. ENT: Negative for sore throat, ear pain, rhinorrhea. CVS: Negative for palpitations, chest pain, syncope. Respiratory: Negative for shortness of breath, cough. GI: Negative for abdominal pain, nausea, vomiting. : Negative for dysuria, hematuria. Neuro: Positive for headache, negative for motor/sensory dysfunction. Skin: Negative for rash, abscess, or wound. EXAM <TRACY Anguiano - Last Filed: 08/28/22 14:42> Physical Exam Narrative Exam Narrative: CONST: Patient sitting in no acute distress. EYES: Normal inspection. PERRLA, EOMI. ENT: Normal inspection, moist mucous membranes. NECK: Normal inspection. RESP: No respiratory distress, CTAB. CVS: Regular rate and rhythm, no murmur, no gallop. SKIN: Color normal, no rash, warm, dry, intact. EXTREMITIES: Normal appearance, no pedal edema. NEURO: Oriented x4. 5/5 upper and lower extremity strength, normal finger-nose bilaterally, normal gait. PSYCH: Normal affect. Const Vital Signs: 08/28/22 13:16 08/28/22 13:24 08/28/22 13:31 Temperature 97 F L Temperature Source Temporal Pulse Rate 95 80 Respiratory Rate 16 12 Respiratory Effort Normal Respiratory Pattern Normal Blood Pressure 229/123 H 191/104 H Blood Pressure Mean 158 133 Pulse Ox 98 99 Oxygen Delivery Method Room Air Room Air 08/28/22 14:18 08/28/22 14:38 Temperature Temperature Source Pulse Rate 82 Respiratory Rate 17 Respiratory Effort Respiratory Pattern Blood Pressure 158/94 H 128/87 H Blood Pressure Mean 115 Pulse Ox 97 Oxygen Delivery Method <Dr. Edwin Merino MD - Last Filed: 08/28/22 22:09> Physical Exam Const Vital Signs: 08/28/22 13:16 08/28/22 13:24 08/28/22 13:31 Temperature 97 F L Temperature Source Temporal Pulse Rate 95 80 Respiratory Rate 16 12 Respiratory Effort Normal Respiratory Pattern Normal Blood Pressure 229/123 H 191/104 H Blood Pressure Mean 158 133 Pulse Ox 98 99 Oxygen Delivery Method Room Air Room Air 08/28/22 14:18 08/28/22 14:38 Temperature Temperature Source Pulse Rate 82 Respiratory Rate 17 Respiratory Effort Respiratory Pattern Blood Pressure 158/94 H 128/87 H Blood Pressure Mean 115 Pulse Ox 97 Oxygen Delivery Method MDM <TRACY Anguiano - Last Filed: 08/28/22 14:42> [facility] Narrative Medical decision making narrative: Patient states she has had significantly elevated blood pressure over the last few weeks. She has been trying to manage this with her primary care doctor on lisinopril and isosorbide. BP today is 229/123, HR 95, otherwise normal vital signs. She has a gradual onset headache which she has had in the past with high BP. She has no nausea or vomiting and is neurologically intact. She has no other signs or symptoms concerning for end organ injury. She was given a dose of clonidine 0.2 mg and BP is significantly improving to 128/87. She states her headache is resolved so I do not think she needs CT imaging. I recommended taking her isosorbide twice daily in addition to her lisinopril and calling her doctor tomorrow. Of note she also had some left lower lip irritation and yellow crusting that appears like folliculitis and was given mupirocin ointment. She was agreeable with this plan and discharged in stable condition. External records reviewed: Renal artery duplex ultrasound from 08/22/2022 shows less than 60% stenosis of bilateral renal arteries, overall unremarkable. Lab Data Labs: Laboratory Results - last 24 hr 08/28/22 08/28/22 13:31 13:31 WBC 7.2 RBC 4.91 Hgb 15.0 Hct 45.2 MCV 92.1 MCH 30.5 MCHC 33.2 RDW Std Deviation 40.8 RDW Coeff of Nabeel 12.0 Plt Count 226 MPV 8.8 Immature Gran % (Auto) 0.100 Neut % (Auto) 57.1 Lymph % (Auto) 31.9 Ell[place] % (Auto) 9.2 Eos % (Auto) 1.0 Baso % (Auto) 0.7 Absolute Neuts (auto) 4.1 Absolute Lymphs (auto) 2.30 Nucleated RBC % 0 Troponin I High Sens 9 <Dr. Edwin Merino MD - Last Filed: 08/28/22 22:09> [facility] Lab Data Attestation: I reviewed the patient's lab results. Labs: Laboratory Results - last 24 hr 08/28/22 08/28/22 13:31 13:31 WBC 7.2 RBC 4.91 Hgb 15.0 Hct 45.2 MCV 92.1 MCH 30.5 MCHC 33.2 RDW Std Deviation 40.8 RDW Coeff of Nabeel 12.0 Plt Count 226 MPV 8.8 Immature Gran % (Auto) 0.100 Neut % (Auto) 57.1 Lymph % (Auto) 31.9 Ellsworth % (Auto) 9.2 Eos % (Auto) 1.0 Baso % (Auto) 0.7 Absolute Neuts (auto) 4.1 Absolute Lymphs (auto) 2.30 Nucleated RBC % 0 Troponin I High Sens 9 Treatment and Re-Evaluation Narrative: Seen and evaluated independently and in conjunction with physician res habilitation assistant. Agree with notes above unless documented otherwise. Patient with gradual onset headache along with this, she has had that before with episodic elevations of her blood pressure in the past, and otherwise asymptomatic. She is well-appearing with a normal neurologic exam, no respiratory distress, and other than her isolated hypertension normal vital signs. We gave her a dose of clonidine, her blood pressure gradually came down and her headache resolved along with that. We discussed management in the meantime before she follows up with her doctor, this could include double her dose of isosorbide, and/or taking another dose of it later in the day. She will follow-up with her doctor and is comfortable with that plan. In addition, patient has had some mild painful swelling in her left lower face just below the lower lip, she has had some seeping from that as well. It is mildly tender, there is crusted yellow on this area consistent with folliculitis. Her lip is mildly swollen and appears to be only localized to the left lower lip and associated with this area and is not consistent with angioedema related to her SMITH inhibitor. Discharge Plan Triage Chief Complaint: Hypertension ED Midlevel Provider: Yaneth Thacker ED Provider: Edwin Merino Dx/Rx/DC Orders Clinical Impression: Folliculitis, Accelerated hypertension Instructions: ED High Blood Pressure Hypertension Prescriptions: New mupirocin 2 % ointment 1 applic topical BID Qty: 15 0RF No Action atorvastatin 10 mg tablet 10 mg PO DAILY Qty: 90 calcium carbonate 600 mg calcium (1,500 mg) tablet 600 mg PO BID Complete Multivitamin tablet 1 tab PO DAILY omega-3 fatty acids 1,000 mg capsule 1,000 mg PO DAILY Zyrtec 10 mg capsule 10 mg PO DAILY lisinopril 20 mg tablet 20 mg PO BID isosorbide mononitrate 30 mg tablet extended release 24 hr 30 mg PO DAILY levothyroxine [Synthroid] 25 mcg Tablet 25 mcg PO DAILY magnesium oxide 400 mg (241.3 mg magnesium) tablet 400 mg PO QHS Label Comments: TAKE 1 (one) Tablet BY MOUTH AT bedtime glucosamine sulfate [Glucosamine] 750 mg Tablet 1,500 mg PO DAILY Rx Instructions: administer with a meal Azo Cranberry 250 mg Tablet,Chewable 250 mg PO BID Primary Care Provider: Cr Casillas Referrals: Cr Casillas MD [Primary Care Provider] - Activity Restrictions/Additional Instructions: Continue your lisinopril and I would recommend taking the isosorbide twice daily as well and call your PCP tomorrow. Disposition Disposition: Home, Self Care Discharge Date/Time: 08/28/22 14:39
[2022-08-28 13:38] LABS: Absolute Neutrophil Count 4.1 X10^3/uL (2.0-7.7); Basophil# 0.05 X10^3/uL; Basophil% 0.7 % (0-1); Eosinophil# 0.07 X10^3/uL; Hematocrit 45.2 % (37-47); Lymphocyte % 31.9 % (19-41); Mean Corp Hgb Conc 33.2 g/dL (32-36); Mean Corpuscular Hgb 30.5 pg (27.0-32.0); Mean Corpuscular Volume 92.1 fL (81-99); Mean Platelet Vol. 8.8 fl (6.2-12.0); Monocyte# 0.66 X10^3/uL; Monocyte% 9.2 % (0-10); NRBC Flagged by Analyzer 0 % (0-5); Neutrophil # 4.12 X10^3/uL (2.7-7.7); Neutrophil % 57.1 % (47-70); Platelet Count 226 K/mm3 (150-450); RBC Distribution Width SD 40.8 fl (35.1-43.9); Red Blood Count 4.91 M/mm3 (4.2-5.4); White Blood Count 7.2 K/mm3 (4.4-11.0)
[2022-08-28] MEDS: cloNIDine HCl 0.2 MG Tablet PO (13:49)
[2022-08-28 13:57] LABS: Troponin-I HS 9 pg/mL (3.0-54.0)
[2022-08-28 14:18] VITALS: BP 158/94
[2022-08-28 14:38] VITALS: BP 128/87; PULSE 82; RESP 17; O2SAT 97
== END 2022-08-28 14:39 | disposition home or self-care (01) ==
PROVIDERS: Physician Assistant; Emergency Provider Emergency Medicine; PCP Family Medicine; Visit Provider Emergency Medicine
DX: L73.9 Follicular disorder, unspecified (principal); I10 Essential (primary) hypertension; Z79.899 Other long term (current) drug therapy
CPT/HCPCS: 84484; 85025; 99285

== ENCOUNTER → 2023-04-10 | Outpatient (CLI) | payer MEDICARE, SELFPAY ==
[2023-04-10 15:25] LABS: Absolute Lymphocyte Count 1.55 X10^3/uL (0.83-4.51); Absolute Neutrophil Count 3.3 X10^3/uL (2.0-7.7); Basophil# 0.04 X10^3/uL; Basophil% 0.7 % (0-1); Eosinophil# 0.05 X10^3/uL; Eosinophils% 0.9 % (0-5); Hematocrit 43.7 % (37-47); Hemoglobin 13.9 g/dL (12.0-15.0); Lymphocyte # 1.55 X10^3/ul (0.83-4.51); Lymphocyte % 27.7 % (19-41); Mean Corp Hgb Conc 31.8 g/dL (32-36); Mean Corpuscular Hgb 30.8 pg (27.0-32.0); Mean Corpuscular Volume 96.9 fL (81-99); Mean Platelet Vol. 10.1 fl (6.2-12.0); Monocyte# 0.68 X10^3/uL; Monocyte% 12.2 % (0-10); NRBC Flagged by Analyzer 0 % (0-5); Neutrophil # 3.26 X10^3/uL (2.7-7.7); Neutrophil % 58.3 % (47-70); Platelet Count 192 K/mm3 (150-450); RBC Distribution Width CV 12.7 % (11.6-14.6); RBC Distribution Width SD 45.4 fl (35.1-43.9); Red Blood Count 4.51 M/mm3 (4.2-5.4); White Blood Count 5.6 K/mm3 (4.4-11.0)
[2023-04-10 16:15] LABS: CRP < 2.90 mg/L (0.0-3.0)
== END | disposition home or self-care (01) ==
LOC: MFPLAB 11:23
PROVIDERS: PCP Family Medicine; Visit Provider Family Medicine
DX: K57.90 Diverticulosis of intestine, part unspecified, without perforation or abscess without bleeding (principal)
CPT/HCPCS: 36415; 85025; 86140

== ENCOUNTER → 2023-04-17 | Outpatient (CLI) | payer MEDICARE, SELFPAY ==
--- NOTE | 2023-04-17 17:47 | CT_ITS ---
INDICATION: diverticulosis EXAMINATION: CT Abdomen And Pelvis W/ Contrast Injection TECHNIQUE: Helically acquired images were obtained of the abdomen and pelvis following oral and IV contrast. 2-D reconstructions reviewed. A radiation dose optimization technique was used for this scan. IV Contrast dosage and agent: 100 cc [id number] Oral contrast: Yes COMPARISON: CT abdomen and pelvis from 05/04/2022 FINDINGS: LOWER CHEST: Minimal basilar linear scarring and atelectasis. Persistent small moderate size hiatal hernia. Heart size within normal limits. LIVER: Several hepatic cysts again noted, with no additional follow-up recommended at this time. Largest cyst measures 2.5 cm diameter. GALLBLADDER AND BILIARY TREE: No calcified gallstones identified. No gallbladder wall edema demonstrated. No significant biliary ductal dilation. PANCREAS: No discrete mass or peripancreatic edema. SPLEEN: Normal size without concerning lesion. ADRENAL GLANDS: Unremarkable. KIDNEYS AND URETERS: Normal renal size and position. No perinephric edema or hydronephrosis. No concerning lesion. Few subcentimeter bilateral simple appearing renal cysts requiring no additional follow-up. PERITONEUM: No significant free fluid. No peritoneal free air detected. RETROPERITONEUM: No retroperitoneal mass or pathologic fluid collection. BOWEL: Normal appendix posterior to cecum within right lower quadrant. Loops of small bowel projecting into small bilateral inguinal hernias. No evidence of secondary bowel strangulation or bowel obstruction. No significant bowel thickening. Noninflamed sigmoid diverticulosis noted. LYMPH NODES: No enlarged mesenteric or retroperitoneal lymph nodes. VESSELS: Mild atherosclerosis with no abdominal aortic aneurysm. URINARY BLADDER: Unremarkable as visualized. REPRODUCTIVE ORGANS: Bilateral adnexal surgical clips noted. No pelvic mass. ABDOMINAL WALL: Small bilateral inguinal hernias containing contrast opacified loops of small bowel. BONES: Chronic bilateral L5 pars defects with secondary grade 1 anterolisthesis L5 over S1 with advanced degenerative disc space narrowing. CT/Abdomen/Pelvis WITH Contrast IMPRESSION: 1. Small bilateral inguinal hernias containing loops of small bowel, with no signs of secondary complication. 2. Sigmoid diverticulosis with no evidence of diverticulitis. 3. Stable small to moderate size hiatal hernia. 4. Other chronic and nonurgent findings within body of report. Electronically Signed: Coleman Graves MD at 6:59 EDT ,
== END | disposition home or self-care (01) ==
LOC: CT 17:45
PROVIDERS: PCP Family Medicine; Referring Provider Family Medicine; Visit Provider Family Medicine
DX: K57.90 Diverticulosis of intestine, part unspecified, without perforation or abscess without bleeding (principal)
CPT/HCPCS: 74177; Q9967

== ENCOUNTER 2023-04-28 09:40 | Day surgery (SDC) | payer MEDICARE, SELFPAY ==
[2023-04-28] VITALS (7 sets, daily range): BP systolic 85–167; BP diastolic 52–95; PULSE 73–84; RESP 16–18; TEMP 36.7–36.9; O2SAT 93–100; BMI 20.6
[2023-04-28] MEDS: Lactated Ringers 1,000 ML 15 ML IV (10:14)
--- NOTE | 2023-04-28 10:39 | PCM.HP.BLA ---
History and Physical Date of Admission: 04/28/23 Visit Reasons: HIATAL AND INGUINAL HERNIAS Chief Complaint: inguinal hernias [employer] Required: No Is patient in pain?: No Allergies Penicillins Allergy (Mild, Verified 04/25/23 08:32) HIVES Medications atorvastatin 10 mg tablet 10 mg PO DAILY #90 tabs 01/17/19 [History Confirmed 04/25/23] calcium carbonate 600 mg calcium (1,500 mg) tablet 600 mg PO BID 01/17/19 [History Confirmed 04/25/23] cetirizine 10 mg capsule (Zyrtec) 10 mg PO DAILY 01/17/19 [History Confirmed 04/25/23] multivitamin,[id number]-apue-cdozevei (Complete Multivitamin tablet) 1 tab PO DAILY 01/17/19 [History Confirmed 04/25/23] omega-3 fatty acids 1,000 mg capsule 1,000 mg PO DAILY 01/17/19 [History Confirmed 04/25/23] cranberry fruit concentrate 250 mg chewable tablet (Azo Cranberry) 250 mg PO BID 08/28/22 [History Confirmed 04/25/23] glucosamine sulfate 750 mg tablet 1,500 mg PO DAILY 08/28/22 [History Confirmed 04/25/23] levothyroxine 25 mcg tablet (Synthroid) 25 mcg PO DAILY 08/28/22 [History Confirmed 04/25/23] magnesium oxide 400 mg (241.3 mg magnesium) tablet 400 mg PO QHS 08/28/22 [History Confirmed 04/25/23] clonidine HCl 0.1 mg tablet 0.1 mg PO PRN 04/25/23 [History Confirmed 04/25/23] dicyclomine 10 mg capsule 10 mg PO PRN 04/25/23 [History Confirmed 04/25/23] esomeprazole magnesium 20 mg capsule,delayed release 20 mg PO DAILY 04/25/23 [History Confirmed 04/25/23] ramipril 10 mg capsule 10 mg PO BID 04/25/23 [History Confirmed 04/25/23] PFSH Medical History (Updated 04/25/23 @ 09:[address] Roebrt Montenegro MD) Arthritis Bilateral inguinal hernia (BIH) Diverticulitis Hay fever Hemorrhoids Hypertension Surgical History History of knee surgery History of tonsillectomy Family History (Updated 04/25/23 @ 08:31 by Alison Steen) Mother Cancer cervical Diabetes Heart disease HypertensionDaughter Hypertension Heart disease Social History (Updated 04/25/23 @ 08:31 by Alison Steen) Smoking Status: Former smoker alcohol intake: current HPI HPI HPI: 72-year-old female was referred by Dr. Cr Casillas for surgical consultation regarding hiatal and inguinal hernias. A written compromise surgical consult recommendations will return to him. The patient has had some recurrent bouts of diverticulitis. As of April 10, 2023 her white blood cell count was 5.6 and hemoglobin 13.9 hematocrit 43.7 platelet count of 192,000 with a normal shift. C-reactive protein at that time was less than 2.9. She had had a CT scan abdomen pelvis May 04, 2022 demonstrating uncomplicated diverticulitis. She had an updated more recent CT scan of the abdomen pelvis on April 17, 2023. She was noted to have a moderate sized hiatal hernia with gastric involvement and also bilateral inguinal hernias with small bowel involvement. There was diverticulosis without evidence of diverticulitis. I have personally reviewed these images and concur. Today actually ended up being a complicated interview. She did she actually wanted to talk more about her multiple bouts of diverticulitis in addition to her hiatal hernia in addition to her bilateral groin hernias. She has been having chronic ongoing indigestion for multiple years. She has never had an upper endoscopy. She has had too numerous to count bouts of diverticulitis always in the left lower quadrant. She states that about a month ago she had a colonoscopy by Dr. Seymour Dunaway who apparently had difficulty the engaging the colon. I do not have a copy of that result. For some reason that he referred her to [facility] but we will try to get reports of her colonoscopy as she is interested in having her procedure done locally if possible. Note that since the patient's recent colonoscopy by Dr. Dunaway she has been having increased abdominal grumbling and generalized bowel noises. She has always been able to reduce her inguinal hernias. Finally the patient notes about a 10 pound weight loss and she attributes this to her multiple bouts of diverticulitis. April 17, 2023 EXAMINATION: CT Abdomen And Pelvis W/ Contrast Injection TECHNIQUE: Helically acquired images were obtained of the abdomen and pelvis following oral and IV contrast. 2-D reconstructions reviewed. A radiation dose optimization technique was used for this scan. IV Contrast dosage and agent: 100 cc Isovue-370 Oral contrast: Yes COMPARISON: CT abdomen and pelvis from 05/04/2022 FINDINGS: LOWER CHEST: Minimal basilar linear scarring and atelectasis. Persistent small moderate size hiatal hernia. Heart size within normal limits. LIVER: Several hepatic cysts again noted, with no additional follow-up recommended at this time. Largest cyst measures 2.5 cm diameter. GALLBLADDER AND BILIARY TREE: No calcified gallstones identified. No gallbladder wall edema demonstrated. No significant biliary ductal dilation. PANCREAS: No discrete mass or peripancreatic edema. SPLEEN: Normal size without concerning lesion. ADRENAL GLANDS: Unremarkable. KIDNEYS AND URETERS: Normal renal size and position. No perinephric edema or hydronephrosis. No concerning lesion. Few subcentimeter bilateral simple appearing renal cysts requiring no additional follow-up. PERITONEUM: No significant free fluid. No peritoneal free air detected. RETROPERITONEUM: No retroperitoneal mass or pathologic fluid collection. BOWEL: Normal appendix posterior to cecum within right lower quadrant. Loops of small bowel projecting into small bilateral inguinal hernias. No evidence of secondary bowel strangulation or bowel obstruction. No significant bowel thickening. Noninflamed sigmoid diverticulosis noted. LYMPH NODES: No enlarged mesenteric or retroperitoneal lymph nodes. VESSELS: Mild atherosclerosis with no abdominal aortic aneurysm. URINARY BLADDER: Unremarkable as visualized. REPRODUCTIVE ORGANS: Bilateral adnexal surgical clips noted. No pelvic mass. ABDOMINAL WALL: Small bilateral inguinal hernias containing contrast opacified loops of small bowel. BONES: Chronic bilateral L5 pars defects with secondary grade 1 anterolisthesis L5 over S1 with advanced degenerative disc space narrowing. CT/Abdomen/Pelvis WITH Contrast IMPRESSION: 1. Small bilateral inguinal hernias containing loops of small bowel, with no signs of secondary complication. 2. Sigmoid diverticulosis with no evidence of diverticulitis. 3. Stable small to moderate size hiatal hernia. 4. Other chronic and nonurgent findings within body of report. Electronically Signed: Coleman Graves MD at 6:59 EDT , ROS General General: Yes weight change; No appetite, fatigue, colon cancer, breast cancer or weakness HEENT HEENT: No difficulty swallowing, eye injury, eye surgery, swollen glands or hoarseness Endo Endocrine: Yes thyroid disease; No diabetes mellitus, thyroid cancer, Hair loss, heat intolerance or cold intolerance Skin Skin: No rash or changing moles Breast Breast: No left breast lump, right breast lump, nipple discharge, breast pain, abnormal mammogram, abnormal US or breast enlargement Musc Musculoskeletal: No back problems, arthritis, rheumatoid arthritis, gout or joint pain Cardio Cardiovascular: Yes high blood pressure; No murmur, pacemaker, heart disease, atrial fibrillation, heart attack, heart stent, palpitations, shortness of breat with exertion or chest pain Psych Psychiatric: No depression, anxiety or hearing voices Resp Respiratory: No shortness of breath, No sleep apnea, No cough, No COPD, No asthma, No emphysema and No wheezing Gastro Gastrointestinal: Yes abdominal pain, No nausea or vomiting, Yes diarrhea, No constipation, No blood in stool, Yes acid reflux, Yes hemorrhoids, No ulcers, No gallbladder problem and No black,tarry stools Delfino Hematologic: No blood thinners, No blood disorders, No bleeding, No anemia and No blood clots Neuro Neurologic: No system reviewed and no additional complaints, except as documented, No as per HPI, No abnormal gait, No abnormal hearing, No abnormal movements, No abnormal speech, No behavioral changes, No burning sensations, No confusion, No convulsions, No disequilibrium, No dizziness, No localized weakness, No frequent falls, No headache(s), No lack of coordination, No loss of vision, No memory loss, No numbness, No other visual disturbances, No radicular pain, No restless legs, No sensory deficit, No syncope, No tingling, No tremor(s), No weakness and No other Exam Const General: cooperative, comfortable and no acute distress [facility] Head: normal to inspection Eyes General: appearance normal, both eyes and all related structures Neck Neck: normal visual inspection Chest Chest palpation & inspection: normal inspection of the chest Resp Effort & Inspection: normal respiratory effort Auscultation: clear to auscultation bilaterally Cardio Rate: regular rate Rhythm: regular rhythm GI Inspection: normal to inspection Palpation: soft and no hepatosplenomegaly Auscultation: normal bowel sounds Other: Notable bilateral groin hernias with significant amount of small bowel involvement bilaterally. Currently nontender and completely reducible. Skin General: no rashes or lesions noted Neuro General: patient alert, patient awake and patient oriented x3 Extrem General: normal to inspection and no calf tenderness Psych Appearance: grossly normal Assessment and Plan Assessment and Plan (1) Hiatal hernia: Status: Acute (2) Bilateral inguinal hernia without obstruction or gangrene: Status: Acute Qualifiers: Recurrence: non-recurrent Qualified Code(s): K40.20 - Bilateral inguinal hernia, without obstruction or gangrene, not specified as recurrent Plan: Copy: Dr. Cr Montenegro M.D., F.A.C.S. (3) Diverticulitis: Status: Acute Plan: Very pleasant but complicated 72-year-old female. Regarding her 10 pound weight loss I have encouraged her to try to supplement with nutritional supplement in preparation and prehabilitation getting ready for planned surgery. I have significant interest in her multiple bouts of recurrent diverticulitis. I have asked her to allow me time to review previous CT imaging and to obtain a colonoscopy report by Dr. Seymour Dunaway. At this point I do not see a particular reason that she would require a tertiary level referral believe that it is highly likely that we will be able to nicely accomplish her procedure locally. I will want to inspect for the degree inflammatory change of the sigmoid colon and likely will involve Dr. Lamont jacobs with a left ureteral catheter placement preprocedure. I have already extensively discussed with her the technique, benefit, risk, alternatives of the laparoscopic sigmoid colectomy with hopefully a small Pfannenstiel incision and a bilateral transversus abdominal plane block. We discussed the benefits and risk and and recovery period and expectations. I believe that this likely would be the primary surgical procedure to be offered. Because of the patient's significant hiatal hernia and indigestion burping and long-term history I do propose for her a esophagogastroduodenoscopy with possible biopsy or polypectomy if indicated. This likely would be the first outpatient procedure that I would offer her and perform. This would then further help evaluate whether she would potentially need to have any consideration for a surgical repair in the future The degree of small bowel involvement in her bilateral inguinal hernias also is of significance. I am recommending to her a laparoscopic bilateral inguinal herniorrhaphy with mesh. She is aware however that we would want to eradicate the source of recurrent infection i.e. sigmoid colon prior to considering this type of repair and that the 2 procedures could not be performed simultaneously. I would anticipate the inguinal hernia repair 3 to 6 months post colectomy. She has had an opportunity to ask and have questions answered. This was a complicated 60-minute imaging review and office consultation. I will have her briefly return to the office to finalize discussion after I have had a chance to further review previous CT imaging of her diverticular disease as well as obtain her colonoscopy report. I very much appreciate the kind option of assisting with her surgical care. Copy: Dr. Cr Montenegro M.D., F.A.C.S. I have examined the patient and the H&P has been reviewed. There are no clinical changes since date of exam. Robert Montenegro M.D., F.A.C.S.
--- NOTE | 2023-04-28 10:45 | IMM_PTH ---
PATIENT: KENISHA HESTER LOC: [facility] [place] U#:[id number] AGE/SX: 72/F ROOM: RE04/28/[address]: Dr. Robert Montenegro MD : 1950 BED: DIS: 04/28/2023 SPEC #: [id number] RECD: 04/28/23 14:00 STATUS: SHARYN REQ #: [id number] JOSEFA: 04/28/23 10:[address]: Robert Montenegro DEPT: IMMUNOHISTOCHEMISTRY RECD BY: Reema Rivera ENTERED: 04/28/23 14:01 SP TYPE: IMMUNO OTHR DR: Dr. Cr Casillas MD Tissues: A - Stomach, NOS Procedures: H Pylori (initial) PHYSICIAN & INSTITUTION [address] [address] SPECIMEN INFORMATION: Tissue Source: A - Gastric antrum Clinical Info: Hiatal hernia, bilateral inguinal hernia Specimen Number: [id number] CPT code: 53714 METHODOLOGY: Deparaffinized sections of prefer/formalin-fixed tissue or PAP/DQ stained slides are incubated with monoclonal/polyclonal antibodies/oligonucleotide probes. Localization is made via biotin free immunoperoxidase method. Appropriate controls are performed and reacted as expected. Results on target cell population are indicated in the following table: RESULTS: ANTIBODY / CLONE RESULT Block A H Pylori (polyclonal) negative These tests were developed and their performance characteristics determined by [facility]. They may not have been cleared or approved by the U.S. Food and Drug Administration. The FDA has determined that such clearance or approval is not necessary. The above immunohistochemical/dualISH markers are ordered and reviewed by the Pathologist. INTERPRETATION: A. Gastric antrum, biopsy: Negative for Helicobacter pylori organisms. AM:nba 05/01/2023
--- NOTE | 2023-04-28 10:45 | EGD_PTH ---
PATIENT: KENISHA HESTER [place] [facility] [place][id number] AGE/SX: 72/F ROOM: RE04/28/[address]: Dr. Robert Montenegro MD : 1950 BED: DIS: 04/28/2023 SPEC #: [id number] RECD: 04/28/23 13:09 STATUS: SHARYN REShelbi #: [id number] JOSEFA: 04/28/23 10:[address]: Robert Montenegro DEPT: SURGICAL PATHOLOGY RECD BY: Janel Abraham ENTERED: 04/28/23 13:31 SP TYPE: EGD BIOPSY OTHR DR: Dr. Cr Casillas MD Tissues: A - Gastric mucous membrane B - Esophagus, NOS Procedures: Special Stain Group II Surgery Specimen Level IV Alcian Blue/PAS (control) HEADER OPERATION: EGD, biopsy PRE-OP DIAGNOSIS: Hiatal hernia, bilateral inguinal hernia TISSUE SUBMITTED: A - Gastric antrum biopsy, H. pylori and path, B - Distal esophagus biopsy MICROSCOPIC DIAGNOSIS A. Gastric antrum, biopsy: Chronic gastritis. See comment. B. Distal esophagus, biopsy: Fragments of gastroesophageal junctional mucosa with minimal chronic inflammation. No evidence of goblet cell metaplasia. See comment. AM:nba 05/01/2023 COMMENT A. The results of immunohistochemistry for Helicobacter pylori will be reported separately ([id number]). B. Alcian blue/PAS stain with matched control supports the above diagnosis. MICROSCOPIC DESCRIPTION Slides are reviewed. GROSS DESCRIPTION A - Received in fixative is one container labeled with the patient's name and designated gastric antrum biopsy. The specimen consists of one irregular fragment of light balderas soft tissue that measures 0.6 x 0.3 x 0.1 cm. The specimen is totally submitted in one cassette. B - Received in fixative is one container labeled with the patient's name and designated distal esophagus biopsy. The specimen consists of two irregular fragments of light balderas soft tissue that in aggregate measure 0.6 x 0.3 x 0.1 cm. The specimen is totally submitted in one cassette. / SJ:nba 04/28/2023 TC:3 CPT: 57188 x2, 00759
--- NOTE | 2023-04-28 11:36 | OP.CCLET_ITS ---
04/28/2023 Cr Casillas [address] [place] [address] Re : Upper GI endoscopy procedure for Zonia Inocencio Dear Dr. Casillas This procedure was performed on Friday, April 28, 2023. My impressions and recommendations are as follows: Impressions : - Medium-sized hiatal hernia. - Z-line variable, 35 cm from the incisors. Biopsied. - Erythematous mucosa in the antrum. Biopsied. - Normal examined duodenum. We will await pathology. The patient is in need of a laparoscopic sigmoid colectomy as well as laparoscopic bilateral inguinal herniorrhaphies. Consideration for possible surgical intervention with her sliding hiatal hernia could be determined pending her future progress. Recommendations : - Discharge patient to home. - Resume previous diet. - Continue present medications. - Telephone my office for pathology results in 1 week. My findings are described in the full procedure note, which is enclosed. If I can be of further assistance, please feel free to contact me at Doctor phone number(s): Work: . Sincerely, Robert Montenegro MD 04/28/2023 11:36:12 AM This report has been signed electronically.
--- NOTE | 2023-04-28 11:36 | OP.EGD_ITS ---
Patient Name: Zonia Painter Procedure Date: 04/28/2023 11:13 AM Date of : 1950 Age: 72 Procedure: Upper GI endoscopy Indications: Suspected esophageal reflux Providers: Robert Montenegro MD Medicines: See the Anesthesia note for documentation of the administered medications Complications: No immediate complications. Procedure: Pre-Anesthesia Assessment: - Prior to the procedure, a History and Physical was performed, and patient medications and allergies were reviewed. The patient's tolerance of previous anesthesia was also reviewed. The risks and benefits of the procedure and the sedation options and risks were discussed with the patient. All questions were answered, and informed consent was obtained. Prior Anticoagulants: The patient has taken no anticoagulant or antiplatelet agents. ASA Grade Assessment: II - A patient with mild systemic disease. After reviewing the risks and benefits, the patient was deemed in satisfactory condition to undergo the procedure. After obtaining informed consent, the endoscope was passed under direct vision. Throughout the procedure, the patient's blood pressure, pulse, and oxygen saturations were monitored continuously. The was introduced through the mouth, and advanced to the second part of duodenum. The upper GI endoscopy was accomplished without difficulty. The patient tolerated the procedure well. Scope In: 11:23:14 AM Scope Out: 11:30:11 AM Total Procedure Duration Time 0 hours 6 minutes 57 seconds Findings: A medium-sized hiatal hernia was present. The Z-line was variable and was found 35 cm from the incisors. Biopsies were taken with a cold forceps for histology. Diffuse mildly erythematous mucosa without bleeding was found in the gastric antrum. Biopsies were taken with a cold forceps for histology. The examined duodenum was normal. Impression: - Medium-sized hiatal hernia. - Z-line variable, 35 cm from the incisors. Biopsied. - Erythematous mucosa in the antrum. Biopsied. - Normal examined duodenum. We will await pathology. The patient is in need of a laparoscopic sigmoid colectomy as well as laparoscopic bilateral inguinal herniorrhaphies. Consideration for possible surgical intervention with her sliding hiatal hernia could be determined pending her future progress. Recommendation: - Discharge patient to home. - Resume previous diet. - Continue present medications. - Telephone my office for pathology results in 1 week. Procedure Code(s): --- Professional --- 33660, Esophagogastroduodenoscopy, flexible, transoral; with biopsy, single or multiple Diagnosis Code(s): --- Professional --- K44.9, Diaphragmatic hernia without obstruction or gangrene K22.89, Other specified disease of esophagus K31.89, Other diseases of stomach and duodenum CPT copyright 2021 [employer]. All rights reserved. The codes documented in this report are preliminary and upon fire safety inspector review may be revised to meet current compliance requirements. Robert Montenegro MD 04/28/2023 11:36:12 AM This report has been signed electronically. Number of Addenda: 0 Note Initiated On: 04/28/2023 11:13 AM
== END 2023-04-28 12:22 | disposition home or self-care (01) ==
LOC: SDC 09:54 → AC 10:44
PROVIDERS: PCP Family Medicine; Referring Provider Surgery; Visit Provider Surgery
PROC: 0DJ08ZZ Inspection of Upper Intestinal Tract, Via Natural or Artificial Opening Endoscopic (ICD-10-PCS; CPT 43235; principal; 2023-04-28 10:40)
DX: K44.9 Diaphragmatic hernia without obstruction or gangrene (principal); K29.50 Unspecified chronic gastritis without bleeding; K31.89 Other diseases of stomach and duodenum; K40.20 Bilateral inguinal hernia, without obstruction or gangrene, not specified as recurrent; K20.90 Esophagitis, unspecified without bleeding; K57.30 Diverticulosis of large intestine without perforation or abscess without bleeding; I10 Essential (primary) hypertension; E78.00 Pure hypercholesterolemia, unspecified; Z79.899 Other long term (current) drug therapy; Z87.891 Personal history of nicotine dependence
CPT/HCPCS: 43239; 88305; 88313; 88342; J7120; J2405

== ENCOUNTER 2023-06-21 05:27 | Inpatient (IN) | payer MEDICARE, SELFPAY ==
[2023-06-12 12:57] LABS: Hematocrit 46.4 % (37-47); Hemoglobin 15.3 g/dL (12.0-15.0); Mean Corpuscular Hgb 30.7 pg (27.0-32.0); Mean Corpuscular Volume 93.2 fL (81-99); Mean Platelet Vol. 9.4 fl (6.2-12.0); Platelet Count 179 K/mm3 (150-450); RBC Distribution Width CV 12.2 % (11.6-14.6); RBC Distribution Width SD 41.9 fl (35.1-43.9); Red Blood Count 4.98 M/mm3 (4.2-5.4); White Blood Count 5.8 K/mm3 (4.4-11.0)
[2023-06-12 13:34] LABS: Anion Gap 6 (5-15); BUN 24 mg/dL (7-18); BUN/Creat Ratio 23.1 RATIO (10-20); Calcium,Total 9.3 mg/dL (8.5-10.1); Chloride 105 mmol/L (98-107); Creatinine, Serum 1.04 mg/dL (0.55-1.02); EST Glomerular Filtration Rate 55 mL/min (>60); Est Glom Filt Rate - Afr Amer 67 mL/min (>60); Glucose 83 mg/dL (74-106); Magnesium 2.4 mg/dL (1.6-2.6); Potassium 3.8 mmol/L (3.5-5.1); Sodium Level 138 mmol/L (136-145)
[2023-06-12 13:48] LABS: Thyroid Stim Hormone (TSH) 2.57 uIU/mL (0.358-3.74)
[2023-06-21] VITALS (17 sets, daily range): BP systolic 88–179; BP diastolic 44–97; PULSE 54–102; RESP 9–18; TEMP 35.7–36.9; O2SAT 95–100; BMI 20.2; BMI 23.5
[2023-06-21] MEDS: Lactated Ringers 1,000 ML 40 ML IV ×2 (06:11→17:32)
[2023-06-21] MEDS: Magnesium 1 GM over 15 mins IV (06:12)
[2023-06-21] MEDS: Acetaminophen 500 MG Tablet 1000 MG PO ×3 (06:13→20:37)
[2023-06-21] MEDS: Gabapentin 600 MG Tablet PO (06:13)
[2023-06-21] MEDS: Clindamycin 900 MG/50 ML BAG 75 MG IV ×2 (06:25→15:56)
[2023-06-21 06:32] LABS: Bedside Glucose 93 mg/dL (74-106)
--- NOTE | 2023-06-21 07:07 | DCINST_ITS ---
Discharge Instructions Procedure General Surgery Diet Discharge Diet: Light diet - advance as tolerated (if you have questions about your diet instructions, please talk to you doctor.) Activity Discharge Activity: May Not Drive (for 3-5 days or while taking narcotic pain medicine.) May shower in (days): 1 Lifting Restrictions: 10 pounds Dressing / Incision Call your doctor if your incision/area has: Continuous Slow Oozing, Sudden Increased Bleeding, Increased Pain/ Swelling, Increased Redness and Foul Smelling Discharge Call your doctor if you observe: Fever of 101 or Higher Suture Line Care: Avoid Pulling/Pushing and Avoid Pinching/Bending Additional Dressing/Incision Instructions:: Change or remove dressing in 4 days. Leave steri-strips in place for 1 week. Please do not take omega-3 fatty acids for at least 1 week postoperatively. If you have minimal drainage from the suprapubic site you may change the dressing and apply dry gauze with the tape dressing and then keep that clean and dry. If you require ongoing dressing changes and please notify me at the office. Follow Up Care Please Follow Up With: Robert Montenegro MD When: Call [phone] to make an appointment to be seen in about7-10 days. Test Results: Test results from this visit will be discussed in further detail at your follow- up appointment, if applicable. Discharge Plan Admission Admit Date/Time: 06/21/23 05:27 Primary Reason for Your Visit: Chronic recurrent sigmoid diverticulitis Attending Provider: Robert Montenegro Primary Care Provider: Cr Casillas Consulting Providers: Tino Pabon Discharge Orders/Prescriptions Prescriptions: No Action atorvastatin 10 mg tablet 10 mg PO DAILY Qty: 90 calcium carbonate 600 mg calcium (1,500 mg) tablet 600 mg PO BID Complete Multivitamin tablet 1 tab PO DAILY omega-3 fatty acids 1,000 mg capsule 1,000 mg PO DAILY Zyrtec 10 mg capsule 10 mg PO DAILY ramipril 10 mg capsule 10 mg PO BID Patient Comments: take 1 capsule by mouth twice a day esomeprazole magnesium 20 mg capsule,delayed release(DR/EC) 20 mg PO DAILY PRN (Reason: GERD) Patient Comments: take 1 capsule by mouth once daily dicyclomine 10 mg capsule 10 mg PO DAILY PRN (Reason: abdominal pain) Patient Comments: take 1 capsule by mouth every 8 hours if needed clonidine HCl 0.1 mg tablet 0.1 mg PO Q12H PRN (Reason: hypertensive emergency) Patient Comments: take 1 tablet by mouth once daily if needed for ELEVATED BLOOD PRESSURE metronidazole 500 mg tablet 500 mg PO .COMPLEX Qty: 6 0RF Rx Instructions: Take 2 (two) tablets at 1300, 1500, 2300 neomycin 500 mg tablet 500 mg PO .COMPLEX Qty: 6 0RF Rx Instructions: Take two (2) 500 mg tablets PO at 1300, 1500, 2300 levothyroxine [Synthroid] 25 mcg Tablet 25 mcg PO DAILY magnesium oxide 400 mg (241.3 mg magnesium) tablet 400 mg PO QHS Patient Comments: TAKE 1 (one) Tablet BY MOUTH AT bedtime glucosamine sulfate [Glucosamine] 750 mg Tablet 1,500 mg PO DAILY Rx Instructions: administer with a meal Azo Cranberry 250 mg Tablet,Chewable 500 mg PO DAILY Referrals / Follow Up: Cr Casillas MD [Primary Care Provider] - Disposition Disposition (needs filled in before D/C Order can be placed): Home, Self Care
--- NOTE | 2023-06-21 07:07 | PCM.HP.BLA ---
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 Required: No Is patient in pain?: No Allergies Penicillins Allergy (Mild, Verified 06/06/23 12:54) HIVES Medications atorvastatin 10 mg tablet 10 mg PO DAILY #90 tabs 01/17/19 [History Confirmed 06/06/23] calcium carbonate 600 mg calcium (1,500 mg) tablet 600 mg PO BID 01/17/19 [History Confirmed 06/06/23] cetirizine 10 mg capsule (Zyrtec) 10 mg PO DAILY 01/17/19 [History Confirmed 06/06/23] multivitamin,[id number] (Complete Multivitamin tablet) 1 tab PO DAILY 01/17/19 [History Confirmed 06/06/23] omega-3 fatty acids 1,000 mg capsule 1,000 mg PO DAILY 01/17/19 [History Confirmed 06/06/23] cranberry fruit concentrate 250 mg chewable tablet (Azo Cranberry) 250 mg PO BID 08/28/22 [History Confirmed 06/06/23] glucosamine sulfate 750 mg tablet 1,500 mg PO DAILY 08/28/22 [History Confirmed 06/06/23] levothyroxine 25 mcg tablet (Synthroid) 25 mcg PO DAILY 08/28/22 [History Confirmed 06/06/23] magnesium oxide 400 mg (241.3 mg magnesium) tablet 400 mg PO QHS 08/28/22 [History Confirmed 06/06/23] clonidine HCl 0.1 mg tablet 0.1 mg PO Q12H PRN hypertensive emergency 04/25/23 [History Confirmed 06/06/23] dicyclomine 10 mg capsule 10 mg PO DAILY PRN abdominal pain 04/25/23 [History Confirmed 06/06/23] esomeprazole magnesium 20 mg capsule,delayed release 20 mg PO DAILY 04/25/23 [History Confirmed 06/06/23] ramipril 10 mg capsule 10 mg PO BID 04/25/23 [History Confirmed 06/06/23] PFSH Medical History Arthritis Bilateral inguinal hernia (BIH) Diverticulitis Former smoker GERD (gastroesophageal reflux disease) Hay fever Hemorrhoids High cholesterol History of diverticulitis History of hiatal hernia Hypertension Sarcoma Thyroid disease Wears contact lenses Wears glasses Surgical History History of knee surgery History of tonsillectomy Family History Mother Cancer cervical Diabetes Heart disease HypertensionDaughter Hypertension Heart disease Social History Smoking Status: Former smoker alcohol intake: current HPI HPI Surgical H&P: Yes HPI: Patient is a 72 y/o F I am following for an update history and physical for an upcoming elective laparoscopic sigmoid colectomy for recurrent diverticulitis with Dr. Montenegro. Patient denies any recent hospitalizations since her last visit. She has recently had COVID following her upper scope on 04/28/23. She was treated with Paxlovid, which shortened her course of illness. Patient denies any other concerns or complaints. Patient denies previous history of myocardial infarction, stroke and blood clots. Patient denies pulmonary history. Patient's main diet has consisted of mashed potatoes, cottage cheese, jello and yogurt. She notes she has note had any further diverticulitis episodes. Patient's previous history per Dr. Montenegro: 72-year-old female was referred by Dr. Cr Casillas for surgical consultation regarding hiatal and inguinal hernias. A written compromise surgical consult recommendations will return to him. The patient has had some recurrent bouts of diverticulitis. As of April 10, 2023 her white blood cell count was 5.6 and hemoglobin 13.9 hematocrit 43.7 platelet count of 192,000 with a normal shift. C-reactive protein at that time was less than 2.9. She had had a CT scan abdomen pelvis May 04, 2022 demonstrating uncomplicated diverticulitis. She had an updated more recent CT scan of the abdomen pelvis on April 17, 2023. She was noted to have a moderate sized hiatal hernia with gastric involvement and also bilateral inguinal hernias with small bowel involvement. There was diverticulosis without evidence of diverticulitis. I have personally reviewed these images and concur. Today actually ended up being a complicated interview. She did she actually wanted to talk more about her multiple bouts of diverticulitis in addition to her hiatal hernia in addition to her bilateral groin hernias. She has been having chronic ongoing indigestion for multiple years. She has never had an upper endoscopy. She has had too numerous to count bouts of diverticulitis always in the left lower quadrant. She states that about a month ago she had a colonoscopy by Dr. Seymour Dunaway who apparently had difficulty the engaging the colon. I do not have a copy of that result. For some reason that he referred her to [facility] but we will try to get reports of her colonoscopy as she is interested in having her procedure done locally if possible. Note that since the patient's recent colonoscopy by Dr. Dunaway she has been having increased abdominal grumbling and generalized bowel noises. She has always been able to reduce her inguinal hernias. Finally the patient notes about a 10 pound weight loss and she attributes this to her multiple bouts of diverticulitis. April 17, 2023 EXAMINATION: CT Abdomen And Pelvis W/ Contrast Injection TECHNIQUE: Helically acquired images were obtained of the abdomen and pelvis following oral and IV contrast. 2-D reconstructions reviewed. A radiation dose optimization technique was used for this scan. IV Contrast dosage and agent: 100 cc [id number]-370 Oral contrast: Yes COMPARISON: CT abdomen and pelvis from 05/04/2022 FINDINGS: LOWER CHEST: Minimal basilar linear scarring and atelectasis. Persistent small moderate size hiatal hernia. Heart size within normal limits. LIVER: Several hepatic cysts again noted, with no additional follow-up recommended at this time. Largest cyst measures 2.5 cm diameter. GALLBLADDER AND BILIARY TREE: No calcified gallstones identified. No gallbladder wall edema demonstrated. No significant biliary ductal dilation. PANCREAS: No discrete mass or peripancreatic edema. SPLEEN: Normal size without concerning lesion. ADRENAL GLANDS: Unremarkable. KIDNEYS AND URETERS: Normal renal size and position. No perinephric edema or hydronephrosis. No concerning lesion. Few subcentimeter bilateral simple appearing renal cysts requiring no additional follow-up. PERITONEUM: No significant free fluid. No peritoneal free air detected. RETROPERITONEUM: No retroperitoneal mass or pathologic fluid collection. BOWEL: Normal appendix posterior to cecum within right lower quadrant. Loops of small bowel projecting into small bilateral inguinal hernias. No evidence of secondary bowel strangulation or bowel obstruction. No significant bowel thickening. Noninflamed sigmoid diverticulosis noted. LYMPH NODES: No enlarged mesenteric or retroperitoneal lymph nodes. VESSELS: Mild atherosclerosis with no abdominal aortic aneurysm. URINARY BLADDER: Unremarkable as visualized. REPRODUCTIVE ORGANS: Bilateral adnexal surgical clips noted. No pelvic mass. ABDOMINAL WALL: Small bilateral inguinal hernias containing contrast opacified loops of small bowel. BONES: Chronic bilateral L5 pars defects with secondary grade 1 anterolisthesis L5 over S1 with advanced degenerative disc space narrowing. CT/Abdomen/Pelvis WITH Contrast IMPRESSION: 1. Small bilateral inguinal hernias containing loops of small bowel, with no signs of secondary complication. 2. Sigmoid diverticulosis with no evidence of diverticulitis. 3. Stable small to moderate size hiatal hernia. 4. Other chronic and nonurgent findings within body of report. Electronically Signed: Coleman Graves MD at 6:59 EDT , ROS General General: Yes weight change; No appetite, fatigue, colon cancer, breast cancer or weakness HEENT HEENT: No difficulty swallowing, eye injury, eye surgery, swollen glands or hoarseness Endo Endocrine: Yes thyroid disease; No diabetes mellitus, thyroid cancer, Hair loss, heat intolerance or cold intolerance Skin Skin: No rash or changing moles Breast Breast: No left breast lump, right breast lump, nipple discharge, breast pain, abnormal mammogram, abnormal US or breast enlargement Musc Musculoskeletal: No back problems, arthritis, rheumatoid arthritis, gout or joint pain Cardio Cardiovascular: Yes high blood pressure; No murmur, pacemaker, heart disease, atrial fibrillation, heart attack, heart stent, palpitations, shortness of breat with exertion or chest pain Psych Psychiatric: No depression, anxiety or hearing voices Resp Respiratory: No shortness of breath, No sleep apnea, No cough, No COPD, No asthma, No emphysema and No wheezing Gastro Gastrointestinal: Yes abdominal pain, No nausea or vomiting, Yes diarrhea, No constipation, No blood in stool, Yes acid reflux, Yes hemorrhoids, No ulcers, No gallbladder problem and No black,tarry stools Delfino Hematologic: No blood thinners, No blood disorders, No bleeding, No anemia and No blood clots Neuro Neurologic: No system reviewed and no additional complaints, except as documented, No as per HPI, No abnormal gait, No abnormal hearing, No abnormal movements, No abnormal speech, No behavioral changes, No burning sensations, No confusion, No convulsions, No disequilibrium, No dizziness, No localized weakness, No frequent falls, No headache(s), No lack of coordination, No loss of vision, No memory loss, No numbness, No other visual disturbances, No radicular pain, No restless legs, No sensory deficit, No syncope, No tingling, No tremor(s), No weakness and No other Exam Const General: cooperative, healthy appearing, comfortable and no acute distress [facility] Head: normal to inspection Eyes General: appearance normal, both eyes and all related structures Neck Neck: normal visual inspection Neck mass: No Chest Chest palpation & inspection: normal inspection of the chest Resp Effort & Inspection: normal respiratory effort Auscultation: clear to auscultation bilaterally Cardio Rate: regular rate Rhythm: regular rhythm GI Inspection: normal to inspection Palpation: soft and hernia (bilateral inguinal hernia with small bowel involved) Auscultation: normal bowel sounds Musc Cervical Spine: normal cervical lordosis Skin General: no rashes or lesions noted Neuro General: no focal motor deficits and CN's II-XI intact bilaterally Extrem General: normal to inspection Psych Appearance: grossly normal Affect: normal affect Assessment and Plan Assessment and Plan (1) Diverticulitis: Status: Acute Plan: Dr. Montenegro will plan to perform an ERAS laparoscopic sigmoid colectomy with TAP block and left ureteral stent placement by Dr. Pabon. Procedure details, risks and benefits have been reviewed. Patient has had the opportunity to ask and have questions answered. Patient verbally understands and agrees with the plan. Plan to have patient hold her fish oil and multi-vitamin 7 days prior to the procedure. Patient has been provided ERAS instructions and material including the bowel prep, antibiotic prep and Ensure drinks in preparation for her upcoming procedure. Diet instructions as well as activity instructions have also been reviewed. (2) Bilateral inguinal hernia without obstruction or gangrene: Status: Acute Qualifiers: Recurrence: non-recurrent Qualified Code(s): K40.20 - Bilateral inguinal hernia, without obstruction or gangrene, not specified as recurrent Plan: Dr. Montenegro will plan to perform a laparoscopic bilateral inguinal hernia repair with mesh approximately 3 to 6 months following her colectomy procedure. (3) Hiatal hernia: Status: Acute Plan: Further discussion will be planned to assist with hiatal hernia repair at a later time frame. I have examined the patient and the H&P has been reviewed. There are no clinical changes since date of exam. Robert Montenegro M.D., F.A.C.S.
--- NOTE | 2023-06-21 07:30 | COL_PTH ---
PATIENT: KENISHA HESTER LOC: MS3 U#:[id number] AGE/SX: 72/F ROOM: [facility] RE06/21/[address]: Dr. Robert Montenegro MD : 1950 BED: 1 DIS: 06/22/2023 SPEC #: [id number] RECD: 06/21/23 13:56 STATUS: SHARYN MOHAN #: [id number] JOSEFA: 06/21/23 07:[address]: Robert Montenegro DEPT: SURGICAL PATHOLOGY RECD BY: Janel Abraham ENTERED: 06/22/23 13:01 SP TYPE: COLON OTHR DR: MD Dr. Tino Gerardo MD Tissues: A - Colon, NOS B - Colon Donuts C - Colon Donuts Procedures: Surgery Specimen Level III Surgery Specimen Level V HEADER OPERATION: Laparoscopic colectomy, sigmoid, with bilateral TAP block PRE-OP DIAGNOSIS: Diverticulitis, Bilateral inguinal hernia without obstruction or gangrene TISSUE SUBMITTED: A - Sigmoid colon, B - Proximal sigmoid donut, C - Distal rectal donut MICROSCOPIC DIAGNOSIS A. Sigmoid colon, colectomy: Diverticulosis. Three benign pericolonic lymph nodes. B. Proximal sigmoid donut: Colonic donut, no pathologic diagnosis. C. Distal rectal donut: Colonic donut, no pathologic diagnosis. SJ:nba 06/26/2023 MICROSCOPIC DESCRIPTION Slides are reviewed. GROSS DESCRIPTION A - Received in fixative is one container labeled with the patient's name and designated sigmoid colon. The specimen consists of a 17.0 cm segment of bowel with attached fibrofatty tissue. One end of the bowel is open. The other end of the bowel is stapled. No gross perforations are identified. Sections reveal multiple diverticula. No obviously ruptured diverticula are identified. The pericolic fat is free of mass lesions and contains several small nodules resembling lymph nodes. Customer Service Attendant sections are submitted as follows: 1 - open end of bowel margin, 2 - opposite margin, 3-5 - diverticula, 6??possible lymph nodes. / AM:nba 06/23/2023 B - Received in fixative is one container labeled with the patient's name and designated proximal sigmoid donut. The specimen consists of a light balderas mucosal donut measuring 2.2 cm in diameter and 0.8 cm in thickness. No mass lesions are identified. Customer Service Attendant sections are submitted in one cassette. / AM:nba 06/22/2023 C - Received in fixative is one container labeled with the patient's name and designated distal rectal donut. The specimen consists of a light balderas mucosal donut measuring 2.0 cm in diameter and 1.0 cm in thickness. No mass lesions are identified. Customer Service Attendant sections are submitted in one cassette. / AM:nba 06/22/2023 TC:5 CPT: 94647, 05914 x2
[2023-06-21] MEDS: Gentamicin IV 230 MG in Dextrose 5%-Water (50mL Bag) 50 ML 100 MG IVPB (07:33)
--- NOTE | 2023-06-21 08:07 | OP.PCM_ITS ---
Report of Operation Date of Procedure: 06/21/23 Pre-Operative Diagnosis: Recurrent diverticulitis Post-Operative Diagnosis: Same Surgery/Procedure Performed:: Cystoscopy and left ureteral catheter placement Description of Surgical Findings:: Patient was taken back to the operating room she underwent general anesthetic procedure she was placed in dorsolithotomy position the urethrovaginal area prepped and draped in usual sterile fashion went into the bladder with a 21 [place] rigid cystourethroscope with a 30 degree lens on inspection of the bladder the bladder was normal no tumors or stones seen within the bladder I then cannulated the left ureteral orifice with a Glidewire and a Pollick catheter and advanced all the way up to the kidney I then backloaded the scope off the Pollick catheter and then placed a Arndt catheter into the bladder and secured the Pollick catheter to the Arndt and the case was then handed over to general surgery to proceed with his surgery. Surgeon: Tino Pabon Type of Anesthesia: General Drains: left ureteral catheter
[2023-06-21] MEDS: 0.9% Normal Saline (Pres. free 10 ML Vial (11:07)
[2023-06-21] MEDS: BUPIVACAINE LIPOSOME/PF 20 ML VIAL OPERA.SITE (11:07)
[2023-06-21] MEDS: Bupivacaine 0.25% 30 ML Vial (11:07)
--- NOTE | 2023-06-21 11:39 | OP.PCM_ITS ---
Report of Operation Date of Procedure: 06/21/23 Pre-Operative Diagnosis: Chronic recurrent sigmoid diverticulitis Post-Operative Diagnosis: Same with left pelvic intra-abdominal adnexal adhesions to the colon Surgery/Procedure Performed:: Laparoscopic bilateral transverses abdominal plane block Laparoscopic sigmoid colectomy with a laparoscopic lysis of adhesions Description of Surgical Findings:: Timeout informed consent was obtained. 72-year-old female was taken to the operating placed upon the table underwent general tracheal inpatient esthesia. Gentamicin and clindamycin were given intravenous preoperatively. She was placed in a low lithotomy position. Urology Dr. John Pabon performed cystoscopy and left ureteral catheter placement. The patient was secured on a beanbag with shoulder support in low lithotomy position. The abdomen perineum was sterilely prepped and draped. Ioban draping was used as well. 20 cc of Exparel mixed with 30 cc of 0.5% Marcaine diluted to 100 cc with saline was used as a local anesthetic. Skin sites were Chanel size. To the right of the umbilicus 5 mm incision was created then a 5 mm trocar was inserted under laparoscopic visualization. Clean access was achieved. The abdomen was insufflated with CO2 to a pressure of 10 mmHg pressure. Stomach was somewhat inflated and repositioning the OG tube was recommended. 2 more 5 mm trocars were placed in the right lower quadrant inspection revealed that the sigmoid colon was left back upon itself and densely adherent to the left adnexa. Tediously with blunt dissection sharp dissection and Enseal dissection the adnexal adherence to the colon in this point were gradually and slowly freed. This lysis of adhesion took a significant amount of time to free the colon from that sidewall. The white line of Toldt was incised all the way up toward the splenic flexure. That gave access to elevate the left colon. The left ureter was cleanly identified and later in the case the right ureter was identified as well both preserved. The left pelvic sidewall adhesions were the most dense and this required tedious dissection to find a free that portion of the sigmoid. Having done that I was able to elevate the sigmoid colon and then transect the mesentery using the Enseal device and did that all the way down to the peritoneal reflection. I had good length and was now resecting the vast majority of the chronically inflamed disease. Used a 45 mm [place] stapler and into green loads transected the rectum. Then made a very small Pfannenstiel incision transversely suprapubically and carried down through subcutaneous tissue incising the fascia transversely and then vertically splitting the rectus muscles. Placed a small wound protector. Was able to exit the sigmoid colon at that position. Used a Vivian clamp to to cla mp the colon and transected. A 2-0 Prolene was used as a whip suture and then a 29 mm anvil was inserted and secured with a Prolene. A separate second suture of Prolene was additionally placed for securement. That tissue was dab with Betadine the colon was placed back within the abdomen the abdomen was reinsufflated. The rectum was irrigated with dilute Betadine solution. The 29 mm stapler was inserted easily visualized trocar was exited at the staple line it was mated to the and full the 2 were approximated visualization the device was fired the stapler was then removed and donuts were inspected and noted to be completely intact. The rigid sigmoidoscope was inserted and air was insufflated and there was absolutely no air leak underwater seal. The pelvis was inspected and there was just some diffuse oozing from the dissection sites. I used Floseal on the left pelvic sidewall and in the pelvis and then additionally placed a piece of Surgicel in the pelvis which later in the procedure I removed completely. Having achieved this I paid attention to the bilateral transverses abdominal plane block. The local was instilled under laparoscopic visualization bilaterally and I felt that I had good injection technique. The pelvis was now again inspected and hemostasis had indeed been achieved and as noted the fifth ER was removed. The pelvis was irrigated and aspirated free all structures appear to be intact the greater omentum was placed as far toward the pelvis as it would reach. It is of note that during the procedure the appendix was identified it did not appear to be abnormal. To be somewhat small and fibrotic. The abdomen deflated CO2. The Pfannenstiel incision was closed by approximating the peritoneum with a running 0 Vicryl and then approximated the fascia with a running #1 PDS. Skin edges were approximated with simple or running subdermal 4-0 Monocryl. Steri-Strips Telfa OpSite dressings applied. Sponge and instrument and needle counts were reported to the surgeon to be correct. Specimen sigmoid colon. Drains none. Blood loss 100 cc. She tolerated the procedure well was taken to the recovery room in satisfied condition without apparent complication Robert Montenegro M.D., F.A.C.S. Surgeon: Robert Montenegro Type of Anesthesia: General and Local Anesthesiologist: Nicola Rivas
[2023-06-21] MEDS: Magnesium Chloride 64 MG Delay Rel.Tablet 128 MG PO (20:36)
[2023-06-21] MEDS: Atorvastatin Calcium 10 MG Tablet PO (20:37)
[2023-06-21] MEDS: Ramipril 10 MG Capsule PO (20:37)
[2023-06-21] MEDS: Docusate Sodium 100 MG Capsule PO (20:38)
[2023-06-21] MEDS: Ensure Plus High Protein 120 ML LIQUID PO (20:42)
--- NOTE | 2023-06-21 20:44 | NURSING ---
Pt up walking the hallway w water quality technician.
--- NOTE | 2023-06-21 22:00 | NURSING ---
Pt said she has had 2 liquid bowel movement. Pt noticed bright red blood sm amount on it. Pt said she does have hemorrhoids. Instructed pt not to flush to let me see it. Pt verbalized understanding
[2023-06-22] VITALS (7 sets, daily range): BP systolic 112–163; BP diastolic 54–98; PULSE 78–107; RESP 15–17; TEMP 36.7–37.3; O2SAT 94–100
--- NOTE | 2023-06-22 02:29 | NURSING ---
pt awake, c/o room is to hot. Temp turn down. pt walked hallway x 4 times. Pt steady. denies any pain.
[2023-06-22] MEDS: Levothyroxine 25 MCG TABLET PO (05:04)
[2023-06-22] MEDS: Acetaminophen 500 MG Tablet 1000 MG PO ×2 (05:04→10:09)
[2023-06-22 06:16] LABS: Hematocrit 38.1 % (37-47); Hemoglobin 12.9 g/dL (12.0-15.0); Mean Corp Hgb Conc 33.9 g/dL (32-36); Mean Corpuscular Hgb 31.1 pg (27.0-32.0); Mean Corpuscular Volume 91.8 fL (81-99); Mean Platelet Vol. 9.1 fl (6.2-12.0); Platelet Count 171 K/mm3 (150-450); RBC Distribution Width CV 12.3 % (11.6-14.6); RBC Distribution Width SD 41.4 fl (35.1-43.9); Red Blood Count 4.15 M/mm3 (4.2-5.4); White Blood Count 12.4 K/mm3 (4.4-11.0)
--- NOTE | 2023-06-22 06:40 | PCM.PN.SRG ---
Subjective Subjective Patient has no complaints other than the Arndt. She has had some loose stools and some gas. Little bit of bright red blood. She has no abdominal pain Objective Data Objective Data Vital Signs: Vital Signs Temp Pulse Resp BP Pulse Ox O2 Del Method O2 Flow Rate 99.2 F H 86 17 128/65 H 97 Room Air 2 06/22/23 05:22 06/22/23 05:22 06/22/23 05:22 06/22/23 05:22 06/22/23 05:22 06/22/23 05:22 06/21/23 14:15 Oxygen Flow Rate (L/min) 2 Oxygen Delivery Method Room Air Weight: 120 lb 9 oz Body Mass Index (BMI) 23.5 Intake & Output: Intake and Output for Last 24 Hours 06/20/23 06/21/23 06/22/23 23:59 23:59 23:59 Intake Total 949.75 / 949.75 400 / 400 Output Total 750 / 750 650 / 650 Balance 199.75 / 199.75 -250 / -250 Lab / Micro Data 06/22/23 05:48 06/12/23 12:12 Labs: Laboratory Results - last 24 hr 06/22/23 05:48: WBC 12.4 H, RBC 4.15 L, Hgb 12.9, Hct 38.1, MCV 91.8, MCH 31.1, MCHC 33.9, RDW Std Deviation 41.4, RDW Coeff of Nabeel 12.3, Plt Count 171, MPV 9.1 Physical Exam Const oriented x3 and no apparent distress Resp normal respiratory effort GI GI Narrative: Soft, nontender, minimal staining on suprapubic OpSite, occasional bowel sounds External anal inspection does not reveal any symptomatic external hemorrhoidal disease. No evidence of current blood. Assessment & Plan Assessment/Plan (1) Diverticulitis: PLAN: I suspect that the minimal blood per rectum is secondary to the surgical procedure and anastomosis. This is a stapled anastomosis. She is not demonstrating any signs of significant loss. Laboratories pending. She is tolerating liquids very well. Will initiate a transitional diet. I anticipate seeing the patient again later this afternoon with possible discharge later today. Robert Montenegro M.D., F.A.C.S.
[2023-06-22 06:50] LABS: Anion Gap 3 (5-15); BUN 15 mg/dL (7-18); BUN/Creat Ratio 14.9 RATIO (10-20); Calcium,Total 8.6 mg/dL (8.5-10.1); Chloride 109 mmol/L (98-107); Creatinine, Serum 1.01 mg/dL (0.55-1.02); EST Glomerular Filtration Rate 57 mL/min (>60); Est Glom Filt Rate - Afr Amer 69 mL/min (>60); Glucose 96 mg/dL (74-106); Potassium 4.3 mmol/L (3.5-5.1); Sodium Level 137 mmol/L (136-145)
[2023-06-22] MEDS: Ramipril 10 MG Capsule PO (09:41)
[2023-06-22] MEDS: Loratadine 10 MG Tablet PO (09:41)
[2023-06-22] MEDS: Docusate Sodium 100 MG Capsule PO (09:42)
--- NOTE | 2023-06-22 10:23 | CASEMGMT ---
JULIO AMAYA Assessment: Face to Face with pt for initial transition planning/care coordination assessment. JULIO AMAYA introduced self and role at [facility], pt voices understanding and consents to assessment. Pt is A&O x4 and answers all questions appropriately at this time. Care providers, pharmacy, and demographics verified/updated. Admitting Dx: ERAS, Laparoscopic Colectomy PCP: Cr Casillas Specialists: Wolf (Career Placement Specialist) Preferred Pharmacy: [facility] ([place]) Insurance: [employer] MCR Prescription Benefit: yes LNOK: Hyacinth Vela (sister) Living Will/HCPOA: Yes and Yes; Hyacinth Vela is HCPOA (pt. is fairly sure of this) Living Arrangements: Pt lives alone in a 1 story home, FF, 2 steps w/railing to enter. Prior to this admission pt states she was ambulating steps well and was I in all ADLs/IADLs. Transportation: Self and sister DME: raised toilet seat. Pt. states she will take information on medical alert systems and JULIO AMAYA provided pt. with this information. Pt. denies need for any additional DME at this time. HHC/SNF: denies previous SNF/HHC. Pt. states she does not feel she will need HHC upon discharge. Pt states no concerns with going home at time of dc. Pt. states her sister will be staying with her through the weekend. Pt states no further concerns/needs. CM to follow. Advised pt to ask CM if any further question/concerns/needs arise, voices understanding. Pt Goal: Home with family support and follow-up plans in place. Plan:Home with family support and follow-up plans in place.
--- NOTE | 2023-06-22 15:24 | CASEMGMT ---
Social Work SW met with pt to discuss advance directives.? Pt confirms she has completed a living will and health care POA naming her nephew Renzo Painter and sister Hyacinth Vela.? Pt notified that documents are not on file at [facility] and SW requested they be brought in for scanning into the EMR.? PATEL Echeverria
--- NOTE | 2023-06-22 15:35 | PCM.PN.SRG ---
Subjective Subjective Patient very happy. She is passing stool and flatus. She is walking comfortably. Chest has some mild shoulder to pain. 1 episode of minimal drainage suprapubically but none since and she has been avidly walking. No real abdominal pain. No nausea. Objective Data Objective Data Vital Signs: Vital Signs Temp Pulse Resp BP Pulse Ox O2 Del Method O2 Flow Rate 98.0 F 82 16 154/84 H 100 Room Air 2 06/22/23 12:20 06/22/23 12:20 06/22/23 12:20 06/22/23 12:20 06/22/23 12:20 06/22/23 12:20 06/21/23 14:15 Oxygen Flow Rate (L/min) 2 Oxygen Delivery Method Room Air Weight: 120 lb 9 oz Body Mass Index (BMI) 23.5 Intake & Output: Intake and Output for Last 24 Hours 06/20/23 06/21/23 06/22/23 23:59 23:59 23:59 Intake Total 949.75 / 949.75 500 / 500 Output Total 750 / 750 1250 / 1250 Balance 199.75 / 199.75 -750 / -750 Lab / Micro Data 06/22/23 05:48 06/22/23 05:48 Labs: Laboratory Results - last 24 hr 06/22/23 05:48: WBC 12.4 H, RBC 4.15 L, Hgb 12.9, Hct 38.1, MCV 91.8, MCH 31.1, MCHC 33.9, RDW Std Deviation 41.4, RDW Coeff of Nabeel 12.3, Plt Count 171, MPV 9.1, Sodium 137, Potassium 4.3, Chloride 109 H, Carbon Dioxide 25.0, Anion Gap 3 L, BUN 15, Creatinine 1.01, Estim Creat Clear Calc 35.10, Est GFR (MDRD) Af Amer 69, Est GFR (MDRD) Non-Af 57 L, BUN/Creatinine Ratio 14.9, Glucose 96, Calcium 8.6 Physical Exam GI GI Narrative: Abdominal abdominal dressing is currently clean dry and intact. Her abdomen is decompressed soft and nontender Assessment & Plan Assessment/Plan (1) Diverticulitis: PLAN: Patient has done very well and is now ready for discharge. Robert Montenegro M.D., F.A.C.S.
--- NOTE | 2023-06-22 15:43 | CASEMGMT ---
Pt. has order in for discharge. RN CM in to pt. room to discuss needs at discharge. Pt. denies having any needs at this time and states she is not in need of any additional help concerning her discharge plan. Pt. denies having any further questions/concerns at this time.
--- NOTE | 2023-06-22 16:05 | PCM.DC.SUM ---
Providers Date of Admission: 06/21/23 Primary Care Physician: Dr. Cr Casillas MD Reason For Visit: ERAS, Laparoscopic Colectomy, Sigmo Diagnosis Discharge Diagnosis (1) Diverticulitis: Status: Acute Code(s): K57.92 - Diverticulitis of intestine, part unspecified, without perforation or abscess without bleeding Medications at Discharge Home Medications atorvastatin 10 mg tablet 10 mg PO DAILY CHOLESTEROL #90 tabs 01/17/19 calcium carbonate 600 mg calcium (1,500 mg) tablet 600 mg PO BID SUPPLEMENT 01/17/19 cetirizine 10 mg capsule (Zyrtec) 10 mg PO DAILY ALLERGIES 01/17/19 multivitamin,[id number] (Complete Multivitamin tablet) 1 tab PO DAILY SUPPLEMENT 01/17/19 omega-3 fatty acids 1,000 mg capsule 1,000 mg PO DAILY SUPPLEMENT 01/17/19 cranberry fruit concentrate 250 mg chewable tablet (Azo Cranberry) 500 mg PO DAILY BLADDER 08/28/22 glucosamine sulfate 750 mg tablet 1,500 mg PO DAILY SUPPLEMENT 08/28/22 levothyroxine 25 mcg tablet (Synthroid) 25 mcg PO DAILY THYROID 08/28/22 magnesium oxide 400 mg (241.3 mg magnesium) tablet 400 mg PO QHS SUPPLEMENT 08/28/22 clonidine HCl 0.1 mg tablet 0.1 mg PO Q12H PRN hypertensive emergency 04/25/23 dicyclomine 10 mg capsule 10 mg PO DAILY PRN abdominal pain 04/25/23 esomeprazole magnesium 20 mg capsule,delayed release 20 mg PO DAILY PRN GERD 04/25/23 ramipril 10 mg capsule 10 mg PO BID HEART 04/25/23 Hospital Course Operations - (Laparoscopic bilateral transverses abdominal plane block Laparoscopic sigmoid colectomy with a laparoscopic lysis of adhesions ) Summary of Care Provided Minutes Spent on Discharge: 25 Hospital Course: Patient is a 72 y/o F who presented for an elective Laparoscopic bilateral transverses abdominal plane block, Laparoscopic sigmoid colectomy with a laparoscopic lysis of adhesions performed by Dr. Montenegro on 06/21/23. Prior to the case, Dr. Pabon placed a left ureteral catheter. Patient tolerated the procedure well. Patient had an uneventful hospitalization. She was noted to have a small amount of serous fluid draining from her lower abdominal incision. Upon discharge, patient's abdominal pain was controlled with medication. Patient denies having nausea, vomiting, fever. She is passing flatus and having bowel movements. She is tolerating her transitional diet. Patient is instructed to continue the transitional diet as an outpatient and follow-up with our office in 7-10 days. Weight / BMI Weight Weight: 120 lb 9 oz Body Mass Index (BMI) 23.5 ABG / Lab / Microbiology Data 06/22/23 05:48 06/22/23 05:48 Laboratory: Laboratory Results - last 24 hr 06/22/23 05:48: WBC 12.4 H, RBC 4.15 L, Hgb 12.9, Hct 38.1, MCV 91.8, MCH 31.1, MCHC 33.9, RDW Std Deviation 41.4, RDW Coeff of Nabeel 12.3, Plt Count 171, MPV 9.1, Sodium 137, Potassium 4.3, Chloride 109 H, Carbon Dioxide 25.0, Anion Gap 3 L, BUN 15, Creatinine 1.01, Estim Creat Clear Calc 35.10, Est GFR (MDRD) Af Amer 69, Est GFR (MDRD) Non-Af 57 L, BUN/Creatinine Ratio 14.9, Glucose 96, Calcium 8.6 D/C Instructions Discharge Diet: Light diet - advance as tolerated (if you have questions about your diet instructions, please talk to you doctor.) May shower in (days): 1 Call your doctor if your incision/area has: Continuous Slow Oozing, Sudden Increased Bleeding, Increased Pain/ Swelling, Increased Redness and Foul Smelling Discharge Call your doctor if you observe: Fever of 101 or Higher Suture Line Care: Avoid Pulling/Pushing and Avoid Pinching/Bending Additional Dressing/Incision Instructions: Change or remove dressing in 4 days. Leave steri-strips in place for 1 week. Please do not take omega-3 fatty acids for at least 1 week postoperatively. If you have minimal drainage from the suprapubic site you may change the dressing and apply dry gauze with the tape dressing and then keep that clean and dry. If you require ongoing dressing changes and please notify me at the office. Please Follow Up With: Robert Montenegro MD When: Call [phone] to make an appointment to be seen in about7-10 days. Meaningful Use Info Meaningful Use Diagnoses (Choose all that apply): None applicable Discharge Plan Admission Admit Date/Time: 06/21/23 05:27 Primary Reason for Your Visit: Chronic recurrent sigmoid diverticulitis Attending Provider: Robert Mnotenegro Primary Care Provider: Cr Casillas Consulting Providers: Tino Pabon Discharge Orders/Prescriptions Prescriptions: Continued atorvastatin 10 mg tablet 10 mg PO DAILY Qty: 90 calcium carbonate 600 mg calcium (1,500 mg) tablet 600 mg PO BID Complete Multivitamin tablet 1 tab PO DAILY omega-3 fatty acids 1,000 mg capsule 1,000 mg PO DAILY Zyrtec 10 mg capsule 10 mg PO DAILY ramipril 10 mg capsule 10 mg PO BID Patient Comments: take 1 capsule by mouth twice a day esomeprazole magnesium 20 mg capsule,delayed release(DR/EC) 20 mg PO DAILY PRN (Reason: GERD) Patient Comments: take 1 capsule by mouth once daily dicyclomine 10 mg capsule 10 mg PO DAILY PRN (Reason: abdominal pain) Patient Comments: take 1 capsule by mouth every 8 hours if needed clonidine HCl 0.1 mg tablet 0.1 mg PO Q12H PRN (Reason: hypertensive emergency) Patient Comments: take 1 tablet by mouth once daily if needed for ELEVATED BLOOD PRESSURE levothyroxine [Synthroid] 25 mcg Tablet 25 mcg PO DAILY magnesium oxide 400 mg (241.3 mg magnesium) tablet 400 mg PO QHS Patient Comments: TAKE 1 (one) Tablet BY MOUTH AT bedtime glucosamine sulfate 750 mg Tablet 1,500 mg PO DAILY Rx Instructions: administer with a meal Azo Cranberry 250 mg Tablet,Chewable 500 mg PO DAILY Discontinued metronidazole 500 mg tablet 500 mg PO .COMPLEX Qty: 6 0RF Rx Instructions: Take 2 (two) tablets at 1300, 1500, 2300 neomycin 500 mg tablet 500 mg PO .COMPLEX Qty: 6 0RF Rx Instructions: Take two (2) 500 mg tablets PO at 1300, 1500, 2300 Referrals / Follow Up: Cr Casillas MD [Primary Care Provider] - Robert Montenegro MD [Med Staff - Active Staff] - (Follow-up with our office in 7-10 days. Please call to schedule an appointment) Disposition Disposition (needs filled in before D/C Order can be placed): Home, Self Care Charges/Coding Visit Charges Inpatient E&M: 77504 Disch Hosp (No charge; post-op)
== END 2023-06-22 16:13 | disposition home or self-care (01) | DRG 331 ==
LOC: ACINP 06:01 → MS3 17:15
PROVIDERS: Anesthesiology; Urology; Admitting Provider Surgery; PCP Family Medicine; Referring Provider Surgery; Visit Provider Surgery
PROC: 0DBN4ZZ Excision of Sigmoid Colon, Percutaneous Endoscopic Approach (ICD-10-PCS; CPT 44204; principal; 2023-06-21 07:05)
PROC: 0T778DZ Dilation of Left Ureter with Intraluminal Device, Via Natural or Artificial Opening Endoscopic (ICD-10-PCS; 2023-06-21 07:05)
DX: K57.32 Diverticulitis of large intestine without perforation or abscess without bleeding (principal); E07.9 Disorder of thyroid, unspecified; I10 Essential (primary) hypertension; E78.00 Pure hypercholesterolemia, unspecified; K44.9 Diaphragmatic hernia without obstruction or gangrene; K30 Functional dyspepsia; K40.20 Bilateral inguinal hernia, without obstruction or gangrene, not specified as recurrent; Z87.891 Personal history of nicotine dependence; N73.6 Female pelvic peritoneal adhesions (postinfective)
CPT/HCPCS: 36415; 80048; 82962; 83735; 84443; 85027; 88304; 88307; 93005; 94668; 99252; J7120; C1760; C1769; G0463; J2405; J3475; J3490

== ENCOUNTER 2023-10-23 07:21 | Day surgery (SDC) | payer MEDICARE, SELFPAY ==
[2023-10-11 07:17] LABS: Hematocrit 43.6 % (37-47); Hemoglobin 14.2 g/dL (12.0-15.0); Mean Corp Hgb Conc 32.6 g/dL (32-36); Mean Platelet Vol. 9.5 fl (6.2-12.0); Platelet Count 182 K/mm3 (150-450); RBC Distribution Width CV 11.4 % (11.6-14.6); RBC Distribution Width SD 36.5 fl (35.1-43.9)
[2023-10-11 08:35] LABS: Anion Gap 7 (5-15); BUN 20 mg/dL (7-18); BUN/Creat Ratio 20.9 RATIO (10-20); Calcium,Total 9.5 mg/dL (8.5-10.1); Chloride 108 mmol/L (98-107); Creatinine, Serum 0.96 mg/dL (0.55-1.02); EST Glomerular Filtration Rate 61 mL/min (>60); Est Glom Filt Rate - Afr Amer 73 mL/min (>60); Glucose 80 mg/dL (74-106); Potassium 3.9 mmol/L (3.5-5.1); Sodium Level 141 mmol/L (136-145)
[2023-10-11 09:51] LABS: Thyroid Stim Hormone (TSH) 4.32 uIU/mL (0.358-3.74)
[2023-10-23] VITALS (12 sets, daily range): BP systolic 99–167; BP diastolic 48–99; PULSE 70–92; RESP 16–18; TEMP 36.6–37.4; O2SAT 91–100; BMI 20.2
[2023-10-23] MEDS: Lactated Ringers 1,000 ML 15 ML IV ×2 (08:04→11:55)
--- NOTE | 2023-10-23 09:05 | HP.PCM_ITS ---
History and Physical Date of Admission: 10/23/23 Allergies Penicillins Allergy (Mild, Verified 09/25/23 13:20) HIVES Medications atorvastatin 10 mg tablet 10 mg PO DAILY CHOLESTEROL #90 tabs 01/17/19 [History Confirmed 09/25/23] calcium carbonate 600 mg calcium (1,500 mg) tablet 600 mg PO BID SUPPLEMENT 01/17/19 [History Confirmed 09/25/23] cetirizine 10 mg capsule (Zyrtec) 10 mg PO DAILY ALLERGIES 01/17/19 [History Confirmed 09/25/23] multivitamin,[id number] (Complete Multivitamin tablet) 1 tab PO DAILY SUPPLEMENT 01/17/19 [History Confirmed 09/25/23] omega-3 fatty acids 1,000 mg capsule 1,000 mg PO DAILY SUPPLEMENT 01/17/19 [History Confirmed 09/25/23] cranberry fruit concentrate 250 mg chewable tablet (Azo Cranberry) 500 mg PO DAILY BLADDER 08/28/22 [History Confirmed 09/25/23] glucosamine sulfate 750 mg tablet 1,500 mg PO DAILY SUPPLEMENT 08/28/22 [History Confirmed 09/25/23] levothyroxine 25 mcg tablet (Synthroid) 25 mcg PO DAILY THYROID 08/28/22 [History Confirmed 09/25/23] magnesium oxide 400 mg (241.3 mg magnesium) tablet 400 mg PO QHS SUPPLEMENT 08/28/22 [History Confirmed 09/25/23] clonidine HCl 0.1 mg tablet 0.1 mg PO Q12H PRN hypertensive emergency 04/25/23 [History Confirmed 09/25/23] dicyclomine 10 mg capsule 10 mg PO DAILY PRN abdominal pain 04/25/23 [History Confirmed 09/25/23] esomeprazole magnesium 20 mg capsule,delayed release 20 mg PO DAILY PRN GERD 04/25/23 [History Confirmed 09/25/23] ramipril 10 mg capsule 10 mg PO BID HEART 04/25/23 [History Confirmed 09/25/23] PFSH Medical History Arthritis Bilateral inguinal hernia (BIH) Diverticulitis Former smoker GERD (gastroesophageal reflux disease) Hay fever Hemorrhoids High cholesterol History of diverticulitis History of hiatal hernia Hypertension Sarcoma Thyroid disease Wears contact lenses Wears glasses Surgical History History of knee surgery History of partial colectomy History of tonsillectomy Family History Mother Cancer cervical Diabetes Heart disease HypertensionDaughter Hypertension Heart disease Social History Smoking Status: Former smoker alcohol intake: current HPI HPI HPI: 72-year-old female. I have most recently seen her in the office on July 27, 2023. For chronic diverticular disease I had assisted her with a laparoscopic sigmoid colectomy on June 21, 2023. She has done well with that intervention. Preoperatively she had noted to have a hiatal hernia and bilateral inguinal hernias. We have delayed till this time to consider possible scheduling for a laparoscopic bilateral inguinal hernia repair with mesh. She has been doing very well from her sigmoid colectomy. She has no particular complaints regarding that. She is noticing more bulging of the left inguinal hernia versus the right but she does notice both. ROS General General: Yes weight change; No appetite, fatigue, colon cancer, breast cancer or weakness HEENT HEENT: No difficulty swallowing, eye injury, eye surgery, swollen glands or hoarseness Endo Endocrine: Yes thyroid disease; No diabetes mellitus, thyroid cancer, Hair loss, heat intolerance or cold intolerance Skin Skin: No rash or changing moles Breast Breast: No left breast lump, right breast lump, nipple discharge, breast pain, abnormal mammogram, abnormal US or breast enlargement Musc Musculoskeletal: No back problems, arthritis, rheumatoid arthritis, gout or joint pain Cardio Cardiovascular: Yes high blood pressure; No murmur, pacemaker, heart disease, atrial fibrillation, heart attack, heart stent, palpitations, shortness of breat with exertion or chest pain Psych Psychiatric: No depression, anxiety or hearing voices Resp Respiratory: No shortness of breath, No sleep apnea, No cough, No COPD, No asthma, No emphysema and No wheezing Gastro Gastrointestinal: Yes abdominal pain, No nausea or vomiting, Yes diarrhea, No constipation, No blood in stool, Yes acid reflux, Yes hemorrhoids, No ulcers, No gallbladder problem and No black,tarry stools Delfino Hematologic: No blood thinners, No blood disorders, No bleeding, No anemia and No blood clots Neuro Neurologic: No system reviewed and no additional complaints, except as documented, No as per HPI, No abnormal gait, No abnormal hearing, No abnormal movements, No abnormal speech, No behavioral changes, No burning sensations, No confusion, No convulsions, No disequilibrium, No dizziness, No localized weakness, No frequent falls, No headache(s), No lack of coordination, No loss of vision, No memory loss, No numbness, No other visual disturbances, No radicular pain, No restless legs, No sensory deficit, No syncope, No tingling, No tremor(s), No weakness and No other Exam Const General: cooperative, healthy appearing, comfortable and no acute distress [facility] Head: normal to inspection Eyes General: appearance normal, both eyes and all related structures Neck Neck: normal visual inspection Resp Effort & Inspection: normal respiratory effort Auscultation: clear to auscultation bilaterally Cardio Rate: regular rate Rhythm: regular rhythm GI Inspection: normal to inspection Palpation: soft and no hepatosplenomegaly Other: Bilateral inguinal hernias slightly more medially placed. Well-healed transverse Pfannenstiel incision Skin General: no rashes or lesions noted Neuro General: patient alert, patient awake and patient oriented x3 Extrem General: no calf tenderness Psych Appearance: grossly normal Assessment and Plan Assessment and Plan (1) Bilateral inguinal hernia without obstruction or gangrene: Status: Acute Qualifiers: Recurrence: non-recurrent Qualified Code(s): K40.20 - Bilateral inguinal hernia, without obstruction or gangrene, not specified as recurrent Plan: I recommend to the patient laparoscopic bilateral inguinal hernia repair with mesh. Patient has had a Pfannenstiel incision which may make the dissection slightly more challenging. She is more symptomatic on the left so if only 1 hernia can be addressed and has to be done open then we will do the left side open. If I can achieve a laparoscopic repair on the right but RN able to perform it on the left that I will do a laparoscopic repair on the right with a open repair on the left simultaneously. She is aware that I am not recommending bilateral open repairs. She is aware that mesh will be utilized both laparoscopically and if need be with an open approach. She has had an opportunity to ask and have questions answered. We will schedule procedure at her discretion. I appreciate the ongoing opportunity of assisting with her surgical care. Copy: Dr. Cr Montenegro M.D., F.A.C.S. I have examined the patient and the H&P has been reviewed. There are no clinical changes since date of exam. Robert Montenegro M.D., F.A.C.S.
--- NOTE | 2023-10-23 09:05 | DCINST_ITS ---
Discharge Instructions Procedure General Surgery Diet Discharge Diet: Light diet - advance as tolerated (if you have questions about your diet instructions, please talk to you doctor.) Activity Discharge Activity: May Not Drive (for 3-5 days or while taking narcotic pain medicine.) May shower in (days): 1 Lifting Restrictions: 10 pounds Dressing / Incision Call your doctor if your incision/area has: Continuous Slow Oozing, Sudden Increased Bleeding, Increased Pain/ Swelling, Increased Redness and Foul Smelling Discharge Call your doctor if you observe: Fever of 101 or Higher Suture Line Care: Avoid Pulling/Pushing and Avoid Pinching/Bending Additional Dressing/Incision Instructions:: Change or remove dressing in 4 days. Leave steri-strips in place for 1 week. Follow Up Care Please Follow Up With: Robert Montenegro MD When: Call [phone] to make an appointment to be seen in about 10 days. Test Results: Test results from this visit will be discussed in further detail at your follow- up appointment, if applicable. Discharge Plan Admission Attending Provider: Robert Montenegro Primary Care Provider: Cr Casillas Consulting Providers: Paresh Sampson Discharge Orders/Prescriptions Prescriptions: No Action atorvastatin 10 mg tablet 10 mg PO DAILY Qty: 90 calcium carbonate 600 mg calcium (1,500 mg) tablet 600 mg PO BID Complete Multivitamin tablet 1 tab PO DAILY omega-3 fatty acids 1,000 mg capsule 1,000 mg PO DAILY Zyrtec 10 mg capsule 10 mg PO DAILY ramipril 10 mg capsule 10 mg PO BID Patient Comments: take 1 capsule by mouth twice a day esomeprazole magnesium 20 mg capsule,delayed release(DR/EC) 20 mg PO DAILY Patient Comments: take 1 capsule by mouth once daily dicyclomine 10 mg capsule 10 mg PO DAILY PRN (Reason: abdominal pain) Patient Comments: take 1 capsule by mouth every 8 hours if needed clonidine HCl 0.1 mg tablet 0.1 mg PO Q12H PRN (Reason: hypertensive emergency) Patient Comments: take 1 tablet by mouth once daily if needed for ELEVATED BLOOD PRESSURE levothyroxine [Synthroid] 25 mcg Tablet 25 mcg PO QHS magnesium oxide 400 mg (241.3 mg magnesium) tablet 400 mg PO QHS Patient Comments: TAKE 1 (one) Tablet BY MOUTH AT bedtime glucosamine sulfate 750 mg Tablet 1,500 mg PO DAILY Rx Instructions: administer with a meal Azo Cranberry 250 mg Tablet,Chewable 500 mg PO DAILY amlodipine 2.5 mg tablet 2.5 - 5 mg PO DAILY PRN (Reason: SPIKE IN BP) Patient Comments: IF BP SPIKES, TO TAKE 1 - 2 TABS FOR COUPLE DAYS Referrals / Follow Up: Cr Casillas MD [Primary Care Provider] -
[2023-10-23] MEDS: Clindamycin 900 MG/50 ML BAG 75 MG IV (09:45)
[2023-10-23] MEDS: Bupivacaine Mpf 0.5% 30 ML VIAL (11:18)
--- NOTE | 2023-10-23 11:22 | OP.PCM_ITS ---
Report of Operation Date of Procedure: 10/23/23 Pre-Operative Diagnosis: Bilateral inguinal hernias, suspected left lateral Pfa nnenstiel incisional hernia Post-Operative Diagnosis: Bilateral indirect inguinal hernias Surgery/Procedure Performed:: Laparoscopic bilateral inguinal herniorrhaphy Right extra-large Bard 3D max mesh, lot number [id number], reference [id number], expiry date 03/20/2028 Left extra-large Bard 3D max mesh, lot number [id number], reference [id number], expiry date 02/18/2028 Secure strap Lot number [id number], expiry date 03/2025 Description of Surgical Findings:: Timeout informed consent was obtained. 72-year-old female was taken to the
--- NOTE | 2023-10-23 11:22 | PCM.OPRPT ---
Report of Operation Date of Procedure: 10/23/23 Pre-Operative Diagnosis: Bilateral inguinal hernias, suspected left lateral Pfannenstiel incisional hernia Post-Operative Diagnosis: Bilateral indirect inguinal hernias Surgery/Procedure Performed:: Laparoscopic bilateral inguinal herniorrhaphy Right extra-large Bard 3D max mesh, lot number [id number], reference [id number], expiry date 03/20/2028 Left extra-large Bard 3D max mesh, lot number [id number], reference [id number], expiry date 02/18/2028 Secure strap Lot number [id number], expiry date 03/2025 Description of Surgical Findings:: Timeout informed consent was obtained. 72-year-old female was taken to the operating placed on the table underwent general endotracheal intubation esthesia. Clean procedure. Clindamycin 900 mg were given intravenously preoperatively. Because of a suspected incisional hernia on the left lateral aspect of the Pfannenstiel incision a Arndt catheter was placed to gravity. The abdomen sterilely prepped and draped. Ioban draping was used. Superior to the umbilicus a vertical incision was created. Holding sutures of 0 Vicryl placed. Veress needle inserted. Saline drop test performed. The abdomen was insufflated with CO2 to a pressure of 10 mmHg pressure. 12 mm trocar inserted. 10 mm laparoscope inserted. No evidence of any trocar injuries. The abdomen was insufflated to 10 mm of pressure. Patient was placed in Trendelenburg position. The intra-abdominal contents and abdominal wall were carefully inspected. It appeared that simply that the left indirect inguinal hernia had significantly increased in size prior to previously. There was no evidence of the Pfannenstiel incisional defect. So the final diagnosis is bilateral indirect inguinal hernias. The peritoneum superior lateral to the internal ring on the left was incised carried medially the peritoneum was completely dissected free round ligament was identified and I was able to dissect things free so it remained intact. The pubic tubercle was identified. In a similar fashion the right the peritoneum was incised and then completely dissected free so that both bilateral sacs were completely inverted. On the right however there was adherence to the round ligament so Hem-o-vivek clips were placed and the round ligament was transected. The bladder was identified and carefully protected. Was able to free the peritoneum from the previous retroperitoneal adhesions from the Pfannenstiel incision. No evidence of any bladder injury. Having now clear review of bilateral direct indirect and femoral areas I placed a extra-large Bard 3D max mesh on the right. It positioned nicely and I secured it medially superiorly and laterally with secure strap. The neph left mesh was placed also as next large mesh it slightly overlapped the mesh from the right nicely was position and similarly was secured with a secure strap. I felt that I had excellent positioning with excellent coverage bilaterally. The peritoneum was then approximated to itself using secure strap and Hem-o-vivek clips. Complete obliteration to the mesh was achieved. The abdomen was allowed to deflate through an antiviral valve. The abdomen is allowed to completely deflate trocars were removed the fascia at the umbilicus was approximated with a [id number] suture of 0 Nurolon. It is of note that skin sites were preanesthetized throughout the procedure with 0.5% Marcaine and a total of 30 cc was used throughout the procedure. Skin edges were approximated opted for Monocryl subdermal stitches. Steri-Strips Telfa OpSite dressings applied. Sponge and instrument and needle counts were reported to the surgeon to be correct. Specimens none. Drains none. Blood loss minimal. The patient was taken to the recovery room status condition without apparent complication Robert Montenegro M.D., F.A.C.S. Surgeon: Robert Montenegro Type of Anesthesia: General and Local Anesthesiologist: Paresh Sampson
== END 2023-10-23 15:10 | disposition home or self-care (01) ==
LOC: SDC 07:22 → AC 07:23
PROVIDERS: Anesthesiology; PCP Family Medicine; Referring Provider Surgery; Visit Provider Surgery
PROC: (CPT 49650; principal; 2023-10-23 09:10)
DX: K40.20 Bilateral inguinal hernia, without obstruction or gangrene, not specified as recurrent (principal); Z87.891 Personal history of nicotine dependence; I10 Essential (primary) hypertension; E78.00 Pure hypercholesterolemia, unspecified; Z87.19 Personal history of other diseases of the digestive system; Z90.49 Acquired absence of other specified parts of digestive tract; K21.9 Gastro-esophageal reflux disease without esophagitis; E03.9 Hypothyroidism, unspecified
CPT/HCPCS: 49650; 00840; 36415; 80048; 84443; 85027; J7120; C1781; J2405

== ENCOUNTER → 2024-05-10 | Outpatient (CLI) | payer MEDICARE, SELFPAY ==
[2024-05-10 17:43] LABS: Absolute Lymphocyte Count 2.13 X10^3/uL (0.83-4.51); Absolute Neutrophil Count 3.2 X10^3/uL (2.0-7.7); Basophil# 0.06 X10^3/uL; Eosinophil# 0.07 X10^3/uL; Eosinophils% 1.1 % (0-5); Hematocrit 45.3 % (37-47); Hemoglobin 14.5 g/dL (12.0-15.0); Lymphocyte # 2.13 X10^3/ul (0.83-4.51); Lymphocyte % 34.6 % (19-41); Mean Corpuscular Hgb 28.9 pg (27.0-32.0); Mean Corpuscular Volume 90.2 fL (81-99); Mean Platelet Vol. 9.5 fl (6.2-12.0); Monocyte# 0.66 X10^3/uL; Monocyte% 10.7 % (0-10); NRBC Flagged by Analyzer 0 % (0-5); Neutrophil # 3.23 X10^3/uL (2.7-7.7); Neutrophil % 52.4 % (47-70); Platelet Count 202 K/mm3 (150-450); RBC Distribution Width CV 13.3 % (11.6-14.6); RBC Distribution Width SD 44.5 fl (35.1-43.9); Red Blood Count 5.02 M/mm3 (4.2-5.4); White Blood Count 6.2 K/mm3 (4.4-11.0)
[2024-05-10 18:15] LABS: ALB/GLOB Ratio 1.1 RATIO (0.9-2.4); AST(SGOT) 31 U/L (15-37); Alanine Aminotransfer ALT/SGPT 27 U/L (13-56); Alkaline Phosphatase 86 U/L (45-117); Anion Gap 7 (5-15); BUN 22 mg/dL (7-18); BUN/Creat Ratio 24.3 RATIO (10-20); Calcium,Total 9.9 mg/dL (8.5-10.1); Chloride 104 mmol/L (98-107); EST Glomerular Filtration Rate 64 mL/min (>60); Est Glom Filt Rate - Afr Amer 78 mL/min (>60); Free T3 2.6 pg/mL (2.18-3.98); Globulin 3.7 g/dL (2.2-4.2); Glucose 75 mg/dL (74-106); Potassium 3.7 mmol/L (3.5-5.1); Protein, Total 7.7 g/dL (6.4-8.2); Sodium Level 136 mmol/L (136-145); T4 Free Direct 0.98 ng/dL (0.76-1.46)
[2024-05-10 18:19] LABS: Microalbumin,Random Urine 10.2 mg/L (NO RANGE EST.); Microalbumin:Creatinine Ratio 14.9 mg/g CRE (<30 mg/g CRE)
== END | disposition home or self-care (01) ==
LOC: MTLAB 15:23
PROVIDERS: PCP Family Medicine; Referring Provider Family Medicine; Visit Provider Family Medicine
DX: I10 Essential (primary) hypertension (principal); E03.9 Hypothyroidism, unspecified; K57.90 Diverticulosis of intestine, part unspecified, without perforation or abscess without bleeding
CPT/HCPCS: 36415; 80053; 82043; 82570; 84439; 84443; 84481; 85025

== ENCOUNTER → 2024-05-16 | Outpatient (CLI) | payer MEDICARE, SELFPAY ==
[2024-05-16 16:51] LABS: Bacteria 0 SEEN /hpf (None Seen); Mucous, Urine 0 SEEN /hpf (<or=2+); Red Blood Cells-Urine 0 SEEN /hpf (0-5); Squamous Epithelial Cells - UA 0 SEEN /hpf (5-10)
[2024-05-16 17:48] LABS: Color, Urine Yellow (Yellow); Glucose, Dipstick Normal (Normal); Ketone-Dipstick 5 mg/dl (Negative); Leukocyte Esterase-Dipstick 25 /ul (Negative); Nitrite-Dipstick Negative (Negative); Occult Blood-Urine Negative /ul (Negative); Protein-Dipstick Negative (Negative); Specific Gravity, Urine 1.015 (1.002-1.030); Urine Bilirubin Dipstick Negative (Negative); Urine Clarity Clear (Clear); Urine Urobilinogen Normal (Normal)
[2024-05-16 17:56] LABS: White Blood Cells 0-5 SEEN /hpf (0-5)
== END | disposition home or self-care (01) ==
LOC: MFPLAB 16:48
PROVIDERS: PCP Family Medicine; Referring Provider Family Medicine; Visit Provider Family Medicine
DX: N39.0 Urinary tract infection, site not specified (principal)
CPT/HCPCS: 81001; 87086

== ENCOUNTER → 2024-11-05 | Outpatient (CLI) | payer MEDICARE, SELFPAY ==
[2024-11-05 19:11] LABS: ALB/GLOB Ratio 1.4 RATIO (0.9-2.4); AST(SGOT) 38 U/L (<=31); Alanine Aminotransfer ALT/SGPT 24 U/L (<=34); Albumin, Serum 4.4 g/dL (3.4-4.8); Alkaline Phosphatase 90 U/L (35-104); Anion Gap 14 (5-15); BUN 23 mg/dL (4-19); BUN/Creat Ratio 22.7 RATIO (10-20); Carbon Dioxide 23.1 mmol/L (21.0-32.0); Chloride 102 mmol/L (98-108); Creatinine, Serum 1.01 mg/dL (0.70-1.20); EST Glomerular Filtration Rate 58 (>60); Globulin 3.1 g/dL (2.2-4.2); Glucose 68 mg/dL (70-99); Protein, Total 7.5 g/dL (5.9-8.4); Sodium Level 139 mmol/L (133-145); Total Bilirubin 0.49 mg/dL (0.00-1.30)
[2024-11-05 19:39] LABS: Microalbumin,Random Urine < 12.0 mg/L (NO RANGE EST.); Microalbumin:Creatinine Ratio UNABLE TO CALCULATE mg/g CRE
== END | disposition home or self-care (01) ==
LOC: MFPLAB 14:33
PROVIDERS: PCP Family Medicine; Referring Provider Family Medicine; Visit Provider Family Medicine
DX: I10 Essential (primary) hypertension (principal); E03.9 Hypothyroidism, unspecified
CPT/HCPCS: 36415; 80053; 82043; 82570; 84439; 84443

== ENCOUNTER → 2025-06-11 | Outpatient (CLI) | payer MEDICARE, SELFPAY ==
--- NOTE | 2025-06-11 12:06 | BI_ITS ---
EXAM: SCRN MAMM (CAD)W/TOÑO BILAT DATE: 06/11/2025 CLINICAL HISTORY: F, Age 74 y/o , SCREENING FOR BREAST CANCER TECHNIQUE: Procedure Code: [id number] Modality: MG Procedure: SCRN MAMM (CAD)W/TOÑO BILAT COMPARISON: Prior exam(s) were compared FINDINGS: TISSUE DENSITY: The breasts are heterogeneously dense, which may obscure small masses. Bilateral Breast Mammographic Findings: No significant masses, calcifications or other abnormalities are identified. BI/SCRN MAMM (CAD)W/TOÑO BILAT IMPRESSION: No mammographic evidence of malignancy in either breast. OVERALL FINAL ASSESSMENT BI-RADS 1: NEGATIVE. RECOMMENDATION: Routine annual follow-up in 1 Year Additional Recommendation none A letter with findings and recommendations will be mailed to the patient. Reading Location: [id number]
== END | disposition home or self-care (01) ==
PROVIDERS: PCP Family Medicine
DX: Z12.31 Encounter for screening mammogram for malignant neoplasm of breast (principal)
CPT/HCPCS: 77063; 77067